=== PATIENT | male | born 1935 | race Caucasian/White ===

== ENCOUNTER 2020-02-10 02:54 | Inpatient (IN) | payer MEDICARE, SELFPAY ==
[2020-02-10] VITALS (18 sets, daily range): BP systolic 95–180; BP diastolic 54–89; PULSE 94–116; RESP 14–18; TEMP 36.2–36.9; O2SAT 97–100; BMI 26.1
--- NOTE | ~2020-02-10 | CT_ITS ---
EXAMINATION: CT abdomen pelvis wo con DATE: 02/10/2020 05:55 INDICATION: Hematuria. TECHNIQUE: Computed tomography (CT) of the abdomen and pelvis was performed without intravenous contr ast. Automated exposure control and iterative reconstruction technique were employed. The dose-length product was 705.01 mGy-cm. COMPARISON: CT abdomen and pelvis 06/03/2010 FINDINGS: The visualized portions of the lung bases demonstrate mild atelectasis. No pleural effusion . The heart size is normal. No pericardial effusion. There is diffuse hepatic steatosis. There is hans er surface nodularity, consistent with cirrhosis. There are gallstones in the gallbladder, which is n ormal in size. Calcifications in the spleen are consistent with old granulomatous disease. The pancre as, adrenal glands, and right kidney are normal. There is a 2.0 cm cyst in left kidney. The prostate is severely enlarged. There is a Jonas catheter in expected position. There is hyperdense material in the bladder, consistent with hematoma. There are stones in the bladder measuring up to 17 mm. There is diverticulosis of the colon without evidence of diverticulitis. The appendix is normal. There are no pathologically enlarged lymph nodes. There is a small left inguinal hernia containing fat. There i s no free intraperitoneal fluid. There is moderate lumbar spondylosis. IMPRESSION: 1. Hematoma in the bladder lumen. 2. Bladder stones. 3. Cirrhosis of the liver. 4. Cholelithiasis. Reviewed, dictated and finalized at location A.
[2020-02-10 04:02] LABS: Basophils Percent Auto 0.5 % (0.2-1.2); Eosinophils Absolute Auto 0.3 K/mm3 (0-0.3); Eosinophils Percent Auto 4.1 % (0-4.4); Hematocrit 48.2 % (42.0-52.0); Hemoglobin 16.1 g/dL (14.0-18.0); Immature Granulocyte Absolute 0.02 K/mm3 (0.00-0.031); Immature Granulocyte Percent A 0.3 % (0-0.5); Mean Corpuscular HGB Conc 33.4 g/dl (32-36); Mean Corpuscular Hemoglobin 30.7 pg (26-34); Mean Corpuscular Volume 91.8 fl (80-100); Mean Platelet Volume 10.8 fl (7.4-10.4); Monocytes Absolute Auto 0.5 K/mm3 (0.1-0.6); Monocytes Percent Auto 7.1 % (2.6-8.5); Neutrophils Absolute Auto 4.5 K/mm3 (1.3-6.7); Platelet Count Result 194 k/mm3 (150-375); Red Blood Count 5.25 M/mm3 (4.6-6.20); White Blood Count 7.5 K/mm3 (4.5-10.0)
[2020-02-10 04:14] LABS: Alanine Aminotransferase 31 U/L (4-50); Albumin Level 4.7 g/dL (3.5-5.1); Alkaline Phosphatase 49 U/L (38-126); Aspartate Amino Transferase 33 U/L (17-59); Bilirubin,Total 0.7 mg/dL (0.2-1.3); Blood Urea Nitrogen 18 mg/dL (9-20); Carbon Dioxide 24 mmol/L (22-30); Chloride 102 mmol/L (98-107); Estimated Glomerular Filt Rate > 60; Glucose 180 mg/dL (75-110); Potassium 4.3 mmol/L (3.4-5.0); Sodium 135 mmol/L (137-145)
[2020-02-10 04:17] LABS: INR 1.1; Prothrombin Time 13.5 Seconds (11.1-14.7)
[2020-02-10 04:18] LABS: Partial Thromboplastin Time 30.7 SECONDS (22.3-36.8)
--- NOTE | 2020-02-10 04:35 | PC.NURSE ---
10ml saline balloon deflated 18g laurent catheter removed. Then 3way catheter inserted with minimal discomfort per patient, no. CBobstruction noted-patient continues to bleed from meatus. CBI started with minimal output noted and patients c/o increasing discomfort--piston syringe irrigation/evacuation of blood clots started manually-patient states discomfort improving
--- NOTE | 2020-02-10 06:10 | ED.MALEGU ---
HPI - Male Genitourinary General Chief complaint: Urogenital-Male Stated complaint: bleeding from penis Time Seen by Provider: 02/10/20 03:46 Source: patient Mode of arrival: ambulatory Limitations: no limitations History of Present Illness HPI Narrative: This patient is an 85 yo male with h/o enlarge prostate s/p TURP 10 years ago who presents to ER for evaluation of gross hematuria. PAtient states he has had intermittent hematuria for a long time but yesterday afternoon he developed continuous bleeding from his penis. He reports initially he had gradually bright red blood and it was just trickling. Tonight his bleeding became heavier. HE is now feeling alot of pressue in his bladder and he is urinating very little. HE denies fever, chills, nausea, vomiting or back pain. He does not take any blood thinners. He denies any recent urethral or bladder trauma. Related Data Home Medications Medication Instructions Recorded Confirmed celecoxib 200 mg capsule 200 mg PO DAILY 10/03/19 lisinopril 5 mg tablet 5 mg PO DAILY 10/03/19 metformin 500 mg tablet 500 mg PO BID 10/03/19 psyllium husk 0.52 gram capsule 1.04 gm PO BID cap 10/03/19 sildenafil 50 mg tablet 50 mg PO DAILY PRN 10/03/19 simvastatin 20 mg tablet 20 mg PO DAILY 10/03/19 aminocaproic acid 500 mg tablet 1 gm PO TID PRN 01/14/20 Allergies Allergy/AdvReac Type Severity Reaction Status Date / Time selenium Allergy Unknown rash Verified 01/14/20 09:19 Contrast Media Allergy Unknown Unknown Uncoded 01/14/20 09:19 Review of Systems Review of Systems: All systems reviewed & are unremarkable except as noted in HPI and below Constitutional: Constitutional: Denies body ache(s) and Denies chills Gastrointestinal: Gastrointestinal: Reports abdominal pain, Denies melena, Denies bloating, Denies hematochezia and Denies nausea Genitourinary: Genitourinary: Reports oliguria and Denies flank pain [facility] Past Medical History Medical History (Updated 02/10/20 @ 07:41 by Mitch Martinez MD) BPH (benign prostatic hyperplasia) Degeneration of cervical intervertebral disc Diverticulosis Noted by Colonoscopy; polypectomy 2012, 2019 Glaucoma Hyperlipidemia 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 HEAD: Normocephalic, atraumatic EYES: PERRLA and EOMI, conjunctiva clear without discharge THROAT:Mucous membranes moist, Oropharynx normal without erythema, exudate, peritonsillar swelling or fluctuance NECK: Supple, without lymphadenopathy or mass RESPIRATORY: No respiratory distress, Airway patent, Respirations non-labored, Clear to auscultation without rales, rhonchi or wheeze HEART: Regular rate and rhythm. No murmur heard. Normal peripheral pulses. ABDOMEN: Soft, nontender, nondistended, normal active bowel sounds. No masses. No rebound or guarding, No organomegaly. EXTREMITIES: No edema, normal strength with full range of motion. SKIN: Warm, dry, normal color without rash NEURO: Alert and oriented x3. CN 2-12 grossly intact. No focal deficits. PSYCH: Normal mood and affect. : Penis: Yes circumcised Meatus: Blood at meatus present (bleeding from his meatus)
--- NOTE | 2020-02-10 06:31 | PC.NURSE ---
CBI clotted off-MD aware. Numerous attempts of piston syringe manual evacuation with minimal return. Calling for 24g [address] way catheter to replace the 22g [address] way
--- NOTE | 2020-02-10 06:40 | PC.NURSE ---
22g [address] removed after 30ml saline balloon deflated-pt tolerated well. 24g [address] reinserted with 30ml saline inflation of balloon. Piston syringe evacuation of numerous blood clots-pt reports relief from discomfort-CBI restarted.
--- NOTE | 2020-02-10 06:48 | ECG_ITS ---
Measurements Intervals [place] Rate: 112 P: 64 [place]: 145 QRS: 52 QRSD: 137 T: 31 QT: 349 QTc: 477 Interpretive Statements SINUS TACHYCARDIA RIGHT BUNDLE BRANCH BLOCK BASELINE WANDER- I, II, AVR, AVL, AVF ABNORMAL ECG Electronically Signed On 02-10-2020 8:49:14 CDT by Patrick Byrd D.O.
--- NOTE | 2020-02-10 06:48 | PM.IMHP ---
H&P: HPI History of Present Illness Chief complaint: Gross hematuria/urinary retention/bladder hemorrha Narrative: Harshal Castañeda is a 85 year old male with BPH status post TURP 10 years ago who presents emergency room with hematuria. Patient states after his TURP, he continued to have bleeding. He he was seen again at [place] about 7 years ago but continues to have intermittent bleeding usually after sitting on a hard surface. Two days ago patient was sitting on a hard folding chair for an extended period and that evening began to have gross hematuria. Normally this resolves on its own but this time his symptoms persisted. He had some slight dysuria. He had urinary frequency. He had difficulty emptying his bladder. He did have a UTI about 2 months ago treated with ciprofloxacin with good results. He denies any back pain. There has been no recent urethral instrumentation or trauma. He is not on blood thinners. Patient denies fever, chills, cough, shortness of breath, chest pain, palpitations, nausea, vomiting, diarrhea or abdominal pain. No headache or sore throat symptoms. Because of the persistent hematuria he presented to the emergency room for evaluation. In the emergency room, patient was hemodynamically stable. Hemoglobin was 16. Renal function was normal. LFTs normal. PT and PTT normal. CT of the abdomen pelvis showed hematoma in the bladder lumen with bladder stones. Incidental finding of cirrhosis of the liver noted. Patient denies history of excessive alcohol use. No recent imaging to compare. A Jonas catheter was placed with gross hematuria noted. Patient was seen by myself and Urology in the emergency room.. Review of Systems Review of Systems: Narrative: Gen - No fever or chills Eye -no pruritus of the eyes. No vision changes. ENT -he does have chronic hearing loss and wears a hearing aid. He also complains rhinorrhea from allergies. No sore throat or headache. No otalgia. CV - no chest pain or palpitation. He has difficulty with cardiovascular activity because of knee pain. He does do stretching exercises with his . Last stress test was 5+ years ago which was neormal. No chest pain with exertion. Pulm - no shortness of breath or cough GI - no nausea, vomiting or diarrhea. No abdominal pain -as above Neuro -no neurologic symptoms. No headaches. Endo - no weight loss. Patient is on oral medications for diabetes. He has an A1c checked every 6 months since been well controlled. He does not check his glucose at home. 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 No tobacco use. No drug use. Full code. Nominates his to be the individual would make medical decisions for him if he is unable. He drinks 1-2 alcoholic drinks per week. Smoking packs per day: 0.5 Smoking cigarettes per day: 10.0 Years smoked: 5 Smoking pack-years: 2.50 Smoking status: Former smoker Tobacco type: c
--- NOTE | 2020-02-10 07:17 | WPDURCON ---
Assessment and Plan Assessment and plan (1) Hematuria, gross: Code(s): R31.0 - Gross hematuria Status: Acute Assessment and Plan: Hematuria with clot retention - upper tracts normal on CT-abd/pelvis wo contrast. Most likely cause would be BPH. Will plan cysto/clot evacuation with bilat. RPG. Urology Consult Note HPI Date Seen: 02/10/20 Primary Care Provider: Lynnette Puentes MD Consult Narrative Narrative: Harshal Castañeda is a 85 year old male known to Dr. Romano with longstanding BPH s/p TURP 10 years ago. Presents to ER with worsening painless gross hematuria with eventual clots. Denies fever/chills, n/v. 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 Type 2 diabetes mellitus without complications Surgical History Surgical History H/O arthroscopy of knee H/O hernia repair H/O transurethral resection of prostate History of fusion of cervical spine C5-7 08/14/12 History of hip replacement Family History Family History Father Cerebrovascular accident Sibling Carcinoma of colon Mother Family history of malignant neoplasm of breast in first degree relative Social History Social History Smoking status: Former smoker Alcohol intake: current Meds Home Medications and Allergies Home Medications Medication Instructions Recorded Confirmed Type celecoxib 200 mg capsule 200 mg PO DAILY 10/03/19 History lisinopril 5 mg tablet 5 mg PO DAILY 10/03/19 History metformin 500 mg tablet 500 mg PO BID 10/03/19 History psyllium husk 0.52 gram capsule 1.04 gm PO BID cap 10/03/19 History sildenafil 50 mg tablet 50 mg PO DAILY PRN 10/03/19 History simvastatin 20 mg tablet 20 mg PO DAILY 10/03/19 History glimepiride 2 mg tablet 2 mg PO QAM #90 tablet 12/19/19 Rx aminocaproic acid 500 mg tablet 1 gm PO TID PRN 01/14/20 History Allergies Allergy/AdvReac Type Severity Reaction Status Date / Time selenium Allergy Unknown rash Verified 01/14/20 09:19 Contrast Media Allergy Unknown Unknown Uncoded 01/14/20 09:19 Vital Signs Vital Signs - 24 hr 02/10/20 02:59 02/10/20 04:20 02/10/20 05:45 Temperature 97.9 F Pulse Rate 116 H 100 Respiratory Rate 18 18 18 Blood Pressure 152/89 H 180/89 H 115/82 Pulse Oximetry 98 98 97 02/10/20 06:33 Temperature Pulse Rate 94 Respiratory Rate 18 Blood Pressure 128/84 Pulse Oximetry 98 Exam Const: General: no acute distress Resp: Effort & Inspection: normal respiratory effort GI: Inspection: non-distended GI Palp: No abdominal tenderness and No Guarding due to palpation present (GI) Auscultation: normal bowel sounds Urinary Catheter: Urinary Catheter: urine red and urine with clots Results Labs CBC & Chem 7: 02/10/20 03:57 02/10/20 03:57 Labs: Short CBC 02/10/20 Range/Units 03:57 WBC 7.5 (4.5-10.0) K/mm3 Hgb 16.1 (14.0-18.0) g/dL Hct 48.2 (42.0-52.0) % Plt Count 194 (150-375) k/mm3 BMP 02/10/20 03:57 Sodium 135 L Potassium 4.3 Chloride 102 Carbon Dioxide 24 BUN 18 Creatinine 0.60 L Glucose 180 H Calcium 10.0 Liver Function 02/10/20 Range/Units
[2020-02-10] MEDS: LACTATED RINGERS 1,000 ML 125 ML IV CONT (07:43)
--- NOTE | 2020-02-10 08:00 | PC.NURSE ---
This patient, Harshal Castañeda, was admitted to [facility] Surg Room 306-02. Patient/family oriented to hospital policies and general routines including ID bracelet, bed and alarms, visiting hours, pain management, procedures, bathroom and other care routines, personal items, smoking policy, room service/diet, and visiting hours. Valuables list has been completed. Information on how to activate the Rapid Response Team has been discussed. Patient/Family are encouraged to report perceived risks to care and to ask questions if they do not understand what they are told or what they should do.
[2020-02-10 08:21] LABS: Hematocrit 41.8 % (42.0-52.0)
--- NOTE | 2020-02-10 10:20 | PC.NURSE ---
To OR via Bed.
[2020-02-10] MEDS: LACTATED RINGERS 1,000 ML 30 ML IV CONT ×2 (10:50→13:36)
[2020-02-10 10:58] LABS: Glucose Point of Care 178 (65-105)
--- NOTE | 2020-02-10 11:35 | WPDANESEPPF ---
Anes - Initial Pre Proc Eval Procedure: Operation Date: 02/10/20 12:00 Proposed Procedures p Cystoscopy, Clot Evacuation, Bilateral Retrograde Pyelograms - Carter Hernandez MD Date/Time: 02/10/20 11:35 Surgeon: Avel Leonard MD Pre Op Diagnosis: Gross hematuria/urinary retention/bladder hemorrha Patient Data Age: 85 Gender: M Height: 6 ft Weight: 87.3 kg Last Vital Signs Temp 36.4 C 02/10/20 10:58 Pulse 107 H 02/10/20 10:58 Resp 18 02/10/20 10:58 BP 120/64 02/10/20 10:58 Pulse Ox 98 02/10/20 10:58 Allergies Allergy/AdvReac Type Severity Reaction Status Date / Time selenium Allergy Unknown rash Verified 01/14/20 09:19 Contrast Media Allergy Unknown Unknown Uncoded 01/14/20 09:19 Home Medications Medication Instructions Recorded Confirmed Type celecoxib 200 mg capsule 200 mg PO DAILY 10/03/19 02/10/20 History lisinopril 5 mg tablet 5 mg PO DAILY 10/03/19 02/10/20 History metformin 500 mg tablet 500 mg PO BID 10/03/19 02/10/20 History psyllium husk 0.52 gram capsule 1.04 gm PO BID cap 10/03/19 02/10/20 History sildenafil 50 mg tablet 50 mg PO DAILY PRN 10/03/19 History simvastatin 20 mg tablet 20 mg PO DAILY 10/03/19 02/10/20 History glimepiride 2 mg tablet 2 mg PO QAM #90 tablet 12/19/19 02/10/20 Rx aminocaproic acid 500 mg tablet 1 gm PO TID PRN 01/14/20 02/10/20 History bimatoprost [Lumigan] 1 drp OPHTHALMIC (EYE) HS 02/10/20 02/10/20 History brinzolamide [Azopt] 1 drp OPHTHALMIC (EYE) BID 02/10/20 02/10/20 History [id number] K-lycop 1 tablet DAILY 02/10/20 02/10/20 History [Men's 50 Plus Multivitamin] Laboratory Tests 02/10/20 02/10/20 02/10/20 03:57 03:57 03:57 WBC 7.5 K/mm3 K/mm3 (4.5-10.0) RBC 5.25 M/mm3 M/mm3 (4.6-6.20) Hgb 16.1 g/dL g/dL (14.0-18.0) Hct 48.2 % % (42.0-52.0) MCV 91.8 fl fl (80-100) MCH 30.7 pg pg (26-34) MCHC 33.4 g/dl g/dl (32-36) RDW 13.0 % % (11.5-14.5) Plt Count 194 k/mm3 k/mm3 (150-375) MPV 10.8 fl H fl (7.4-10.4) Immature Gran % (Auto) 0.3 % % (0-0.5) Neut % (Auto) 60.0 % % (45.5-73.1) Lymph % (Auto) 28.0 % % (18.3-44.2) [place] % (Auto) 7.1 % % (2.6-8.5) Eos % (Auto) 4.1 % % (0-4.4) Baso % (Auto) 0.5 % % (0.2-1.2) Lymph # (Auto) 2.10 K/mm3 K/mm3 (0.9-3.2) [place] # (Auto) 0.5 K/mm3 K/mm3 (0.1-0.6) Eos # (Auto) 0.3 K/mm3 K/mm3 (0-0.3) Baso # (Auto) 0.0 K/mm3 K/mm3 (0.0-0.1) Abs Immat Gran (auto) 0.02 K/mm3 K/mm3 (0.00-0.031) Absolute Neuts (auto) 4.5 K/mm3 K/mm3 (1.3-6.7) Absolute Nucleated RBC 0.0 K/mm3 K/mm3 (0.0-0.012) Nucleated RBC % 0.0 % % (0.0-0.2) PT 13.5 Seconds Seconds (11.1-14.7) INR 1.1 APTT 30.7 SECONDS SECONDS (22.3-36.8) Sodium 135 mmol/L L mmol/L (137-145) Potassium 4.3 mmol/L mmol/L (3.4-5.0) Chloride 102 mmol/L mmol/L (98-107) Carbon Dioxide 24 mmol/L mmol/L (22-30) BUN 18 mg/dL mg/dL (9-20) Creatinine 0.60 mg/dL L mg/dL (0.7-1.3) Estim Creat Clear Calc Not Reportable Estimated GFR > 60 (59 - ) Glucose 180 mg/dL H mg/dL (75-110) POC Capillary Glucose Calcium 10.0 mg/dL mg/dL (8.4-10.2) Total Bilirubin 0.7 mg/dL mg/dL (0.2-1.3) AST 33 U/L U/L (17-59) ALT 31 U/L U/L (4-50) Alkaline Phosphatase 49 U/L U/L (38-126) Total Protein 8.0 g/dL g/dL (6.3-8.2) Albumin 4.7 g/dL g/dL (3.5-5.1) Blood Type Antibody Screen 02/10/20 02/10/20 02/10/20 07:13 08:08 10:56 WBC RBC Hgb 14.0 g/dL g/dL (14.0-18.0) Hct 41.8 % L % (42.0-52.0) MCV
[2020-02-10] MEDS: ceFAZolin 2 GM/D5W 50 ML 2 GM/50 ML BAG IVPB (12:14)
--- NOTE | 2020-02-10 14:04 | P.OP_ITS ---
Procedure Note - Detailed Date of procedure: 02/10/20 Pre-op diagnosis: Gross hematuria/urinary retention/bladder hemorrha Post-op diagnosis: same Procedure performed: Cystoscopy, clot evacuation. Attempted bilateral retrograde pyelogram. Description of procedure: Patient is brought to the operative suite where he has prepped and draped in routine sterile fashion while in a dorsal lithotomy position. Cystoscopy is undertaken with a 21 F rigid cystoscope. He has no urethral stricture but massive prostatic hyperplasia including both lateral lobe and a large median lobe. He then has at least 3, and perhaps for 4, moderate- sized bladder stones each measuring 2-3 cm. I evacuated a very large clot using a Hubert syringe. The discoloration of his urine, markedly enlarged median lobe of the prostate and bladder stones precluded identification of the ureteral orifices for retrograde pyelography. I could find no significant bleeding from the prostate itself and saw no additional intravesical pathology other than the bladder stones. Because of the possibility of a UTI and ongoing urine discoloration I opted not to proceed with laser lithotripsy of bladder stones. I did place a 24 F hematuria catheter to continuous irrigation. Efflux was clear at the termination of the procedure. Anesthesia: GLMA Surgeon: Carter Hernandez MD Estimated blood loss (mL): 0 Drains: No Packing: No Pathology: none sent Complications: No immediate complications Condition: stable Disposition: PACU
--- NOTE | 2020-02-10 14:15 | PC.NURSE ---
Back from OR via bed.
[2020-02-10 14:45] LABS: Glucose Point of Care 183 (65-105)
[2020-02-10 15:49] LABS: Hematocrit 37.1 % (42.0-52.0); Hemoglobin 12.3 g/dL (14.0-18.0)
[2020-02-10 18:04] LABS: Glucose Point of Care 193 (65-105)
[2020-02-10] MEDS: BRINZOLAMIDE 1% OPHTH SUSP 10 ML 1 DROP EACH EYE (20:16)
[2020-02-10] MEDS: LATANOPROST 0.005% OP SOLN 2.5 ML BTL 1 DROP EACH EYE (20:16)
[2020-02-10 20:41] LABS: Glucose Point of Care 321 (65-105)
[2020-02-10] MEDS: DOCUSATE SODIUM 100 MG CAPSULE PO (20:48)
[2020-02-10 21:28] LABS: Hematocrit 36.8 % (42.0-52.0); Hemoglobin 11.8 g/dL (14.0-18.0)
[2020-02-10 23:59] LABS: Glucose Point of Care 229 (65-105)
[2020-02-11] VITALS (7 sets, daily range): BP systolic 87–113; BP diastolic 46–87; PULSE 103–117; RESP 16–18; TEMP 36.6–36.9; O2SAT 92–100
[2020-02-11 01:23] LABS: Hematocrit 34.5 % (42.0-52.0); Hemoglobin 11.5 g/dL (14.0-18.0)
[2020-02-11 06:05] LABS: Hematocrit 33.4 % (42.0-52.0); Hemoglobin 10.9 g/dL (14.0-18.0); Mean Corpuscular HGB Conc 32.6 g/dl (32-36); Mean Corpuscular Hemoglobin 30.4 pg (26-34); Mean Corpuscular Volume 93.3 fl (80-100); Mean Platelet Volume 11.7 fl (7.4-10.4); Platelet Count Result 184 k/mm3 (150-375); Red Blood Count 3.58 M/mm3 (4.6-6.20); Red Cell Distribution Width 13.1 % (11.5-14.5); White Blood Count 11.5 K/mm3 (4.5-10.0)
[2020-02-11 06:15] LABS: Blood Urea Nitrogen 16 mg/dL (9-20); Calcium 8.6 mg/dL (8.4-10.2); Carbon Dioxide 29 mmol/L (22-30); Chloride 104 mmol/L (98-107); Cholesterol 86 mg/dL (0-200); Estimated CRCL calculation 76 ml/min; Estimated Glomerular Filt Rate > 60; Glucose 162 mg/dL (75-110); HDL Direct 33 mg/dL; Potassium 4.3 mmol/L (3.4-5.0); Sodium 137 mmol/L (137-145); Triglycerides 101 mg/dL (<150)
[2020-02-11 06:26] LABS: LDL Cholesterol Direct 38 mg/dL
[2020-02-11 06:28] LABS: Hemoglobin A1C 6.8 % (<5.7)
[2020-02-11 06:43] LABS: Iron 51 ug/dL (49-181)
[2020-02-11 06:52] LABS: Percent Iron Saturation 18 % (20-50)
[2020-02-11 07:17] LABS: Thyroid Stimulating Hormone Reflex 0.491 uIU/mL (0.465-4.68)
[2020-02-11 07:25] LABS: Folic Acid > 20.0 ng/mL (2.76->20)
[2020-02-11 08:22] LABS: Hepatitis B Surface Antigen Negative (Negative)
[2020-02-11 08:39] LABS: Hepatitis B Surface Anti Res Negative; Hepatitis C Virus Antibody Negative (Negative)
[2020-02-11 09:20] LABS: Glucose Point of Care 166 (65-105)
[2020-02-11] MEDS: FINASTERIDE 5 MG TABLET PO (09:47)
[2020-02-11] MEDS: SIMVASTATIN 20 MG TABLET PO (09:47)
[2020-02-11] MEDS: metFORMIN HCL 500 MG TABLET PO ×2 (09:47→17:57)
[2020-02-11] MEDS: CELECOXIB 200 MG CAPSULE PO (09:47)
[2020-02-11] MEDS: THERAPEUTIC MULTIVITAMINS/MINERALS TAB (*BKC) 1 TABLET BY MOUTH (09:47)
[2020-02-11] MEDS: DOCUSATE SODIUM 100 MG CAPSULE PO ×3 (09:47→21:15)
[2020-02-11] MEDS: lisinopriL 5 MG TABLET PO (09:47)
[2020-02-11] MEDS: GLIMEPIRIDE 2 MG TABLET PO (09:47)
[2020-02-11] MEDS: LATANOPROST 0.005% OP SOLN 2.5 ML BTL 1 DROP EACH EYE (09:48)
[2020-02-11] MEDS: ACETAMINOPHEN 325 MG TABLET 650 MG PO ×2 (12:03→17:59)
[2020-02-11] MEDS: BRINZOLAMIDE 1% OPHTH SUSP 10 ML 1 DROP EACH EYE ×2 (12:06→21:12)
[2020-02-11 12:20] LABS: Glucose Point of Care 265 (65-105)
--- NOTE | 2020-02-11 14:20 | WPDUROPN2 ---
Progress Note: A&P Assessment and Plan (1) Hematuria, gross: Code(s): R31.0 - Gross hematuria Status: Acute Assessment and Plan: - urine clear, will turn off CBI and reassess in am Subjective Subjective Date/Time Seen: 02/11/20 14:20 Review of Systems Review of Systems: All systems reviewed & are unremarkable except as noted in HPI and below Exam Const: General: no acute distress Eyes: General: appearance normal, both eyes and all related structures Urinary Catheter: Urinary Catheter: urine clear (slow CBI) Objective Data Vital Signs Vital Signs: Vital Signs - 24 hr 02/10/20 14:43 02/10/20 15:16 02/10/20 16:00 Temperature 36.2 C L Pulse Rate 98 99 104 H Respiratory Rate 16 16 16 Blood Pressure 107/62 100/61 112/54 L Pulse Oximetry 100 100 100 02/10/20 22:00 02/11/20 02:00 02/11/20 06:00 Temperature 36.9 C 36.9 C 36.6 C Pulse Rate 101 H 106 H 106 H Respiratory Rate 16 16 16 Blood Pressure 111/61 104/68 106/62 Pulse Oximetry 98 95 96 02/11/20 10:00 Temperature 36.9 C Pulse Rate 117 H Respiratory Rate 18 Blood Pressure 113/53 L Pulse Oximetry 100 Intake/Output Intake/Output: Intake & Output 02/08/20 02/09/20 02/10/20 02/11/20 23:59 23:59 23:59 23:59 Intake Total 6690 790 Output Total 83299 1400 Balance -0094 -943 Meds/Results Medications: Active Medications Generic Name Dose Route Start Last Admin Trade Name Freq PRN Reason Stop Dose Admin Acetaminophen 650 mg 02/11/20 10:35 02/11/20 12:03 Tylenol Tablet PO 650 mg Q6H PRN Administration Mild Pain (1-3) or Fever Aminocaproic Acid 1,000 mg 02/10/20 18:31 Amicar Tab PO TID PRN Bleeding Brinzolamide 1 drop 02/10/20 21:00 02/11/20 12:06 Azopt Ophth Jailyn EACH EYE 1 drop Q12HR JIMI Administration Celecoxib 200 mg 02/11/20 09:00 02/11/20 09:47 Celebrex PO 200 mg DAILY JIMI Administration Dextrose 12.5 gm 02/10/20 07:51 Dextrose 50% Syringe IV PUSH PRN PRN Hypoglycemia Protocol Docusate Sodium 100 mg 02/10/20 21:00 02/11/20 09:47 Colace Capsule PO 100 mg Q12HR JIMI Administration Fentanyl Citrate 25 mcg 02/10/20 11:36 02/10/20 13:42 Sublimaze IV PUSH 25 mcg Q2M PRN Administration Pain Finasteride 5 mg 02/11/20 09:00 02/11/20 09:47 Proscar PO 5 mg QAM JIMI Administration Glimepiride 2 mg 02/11/20 08:00 02/11/20 09:47 Amaryl PO 2 mg DAILY@0800 JIMI Administration Glucagon 1 mg 02/10/20 07:51 Glucagon For Inj IM PRN PRN Hypoglycemia Protocol Glucose 15 gm 02/10/20 07:51 Glutose 15 PO PRN PRN Hypoglycemia Protocol Hyoscyamine 0.125 mg 02/10/20 06:48 Levsin Solution PO Q4HR PRN bladder spasm Dextrose 1,000 mls @ 100 mls/hr 02/10/20 07:51 Dextrose 5% 1,000 Ml IVPB PRN PRN Hypoglycemia Protocol Insulin Aspart 3 - 6 units 02/10/20 08:00 02/11/20 12:37 Novolog SUB-Q Not Given TIDWM [facility] Protocol Latanoprost 1 drop 02/10/20 21:00 02/11/20 09:48 Xalatan EACH EYE 03/11/20 21:01 1 drop HS JIMI Administration Lisinopril 5 mg 02/11/20 09:00 02/11/20 09:47 Prinivil PO 5 mg DAILY JIMI Administration Metformin HCl 500 mg 02/11/20 08:00 02/11/20 09:47 Glucophage PO 500 mg BIDWM JIMI Administration Morphine Sulfate 4 mg 02/10/20 06:49 Morphine Sulfate Inj IV PUSH Q2H PRN Pain Rated 7-10 Multivitamins/Calcium 1 tablet 02/11/20 09:00 02/11/20 09:47 Therapeutic Multivitamins/Minerals BY MOUTH 1 tablet DAILY JIMI Administration Ondansetron HCl 4 mg 02/10/20 06:49 Zofran Inj IV PUSH Q4H PRN Nausea Ondansetron HCl 4 mg 02/10/20 11:36 Zofran Inj IV PUSH ONCE PRN Nausea Simvastatin 20 mg 02/11/20 09:00 02/11/20 09:47 Zocor PO 20 mg DAILY JIMI Administration Radiology Results: ITS Impression
--- NOTE | 2020-02-11 17:06 | PM.IMPN ---
Progress Note: A&P Assessment and Plan (1) Hematuria, gross: Code(s): R31.0 - Gross hematuria Status: Acute Assessment and Plan: Patient with gross hematuria most likely related to BPH and sitting on a hard seat. [place] to be bleeding from the prostate but Cystoscopy could not find any significant bleeding from the prostate itself. Urine has cleared sufficiently enough that this CBI has been turned off. Will monitor overnight. If he continues to maintain relatively clear urine, plan for discharge. (2) Cirrhosis: Qualifiers: Ascites presence: without ascites Hepatic cirrhosis type: unspecified hepatic cirrhosis Qualified Code(s): K74.60 - Unspecified cirrhosis of liver Code(s): K74.60 - Unspecified cirrhosis of liver Status: Acute Assessment and Plan: CT scan shows diffuse hepatic steatosis and some liver surface nodularity consistent with cirrhosis. LFTs and coagulopathy panel normal. Most likely this is related to nonalcoholic fatty liver disease. Workup including hepatitis panel and lipid panel unrevealing. Discussed with patient. (3) Type 2 diabetes mellitus without complications: Qualifiers: Diabetes mellitus adjunct faculty for medical terminology insulin use: without adjunct faculty for medical terminology use Qualified Code(s): E11.9 - Type 2 diabetes mellitus without complications Code(s): E11.9 - Type 2 diabetes mellitus without complications Status: Acute Assessment and Plan: A1c 6.8. Glucose reviewed on 02/11/20. Glucose elevated at times into the 200's. Continue Amaryl and metformin at this time. Cntinue sliding scale protocol. (4) BPH NOS w/o ur obs/LUTS: Code(s): N40.0 - Benign prostatic hyperplasia without lower urinary tract symptoms Status: Acute Assessment and Plan: Patient is status post TURP 10 years ago. He was not on medications for BPH on admission. Finasteride started. Appreciate urology input. (5) Acute blood loss anemia: Code(s): D62 - Acute posthemorrhagic anemia Status: Acute Assessment and Plan: Hemoglobin 16.1 on admission but has trended down to 10.9 today. Related to the acute blood loss from his hematuria. Continue to monitor To ensure stability. Subjective Date/time seen: 02/11/20 17:06 Interval history: 85yo male here for gross hematuria felt related to BPH. No problems overnight. No n/v. Eating well. No chest pain or shortness of breath. Patient is up walking to the bathroom. Exam Narrative: Exam Narrative: Gen -NARD Chest -lungs are clear to auscultation bilaterally. Normal Respiratory rate. CV - Regular rate and rhythm. S1-S2. Abd - Soft. Nontender. Nondistended. Positive bowel sounds -Jonas catheter secured with dark reddish brown urine in the catheter Ext - No pedal edema. Neuro - Alert and oriented. Nonfocal exam. Psych - Nml mood and affect Skin - Warm and dry Objective Data Vital Signs Vital Signs: Vital Signs - 24 hr 02/10/20 22:00 02/11/20 02:00 02/11/20 06:00 Temperature 98.4 F 98.4 F 97.8 F Pulse Rate 101 H 106 H 106 H Respiratory Rate 16 16 16 Blood Pressure 111/61 104/68 106/62 Pulse Oximetry 98 95 96 02/11/20 10:00 02/11/20 14:00 Temperature 98.5 F 98.1 F Pulse Rate 117 H 113 H Respiratory Rate 18 18 Blood Pressure 113/53 L 109/87 Pulse Oximetry 100 92 Intake/Output Intake/Output: Intake & Output 02/08/20 02/09/20 02/10/20 02/11/20 23:59 23:59 23:59 23:59 Intake Total 6690 1030 Output Total 60262 1400 Balance -7751 -370 Meds/Results Medications: Active Medications Generic Name Dose Route Start Last Admin Trade Name Freq PRN Reason Stop Dose Admin Acetaminophen 650 mg 02/11/20 10:35 02/11/20 12:03 Tylenol Tablet PO 650 mg Q6H PRN Administration Mild Pain (1-3) or Fever Aminocaproic Acid 1,000 mg 02/10/20 18:31 Amicar Tab PO TID PRN Bleeding Brinzolamide 1 drop 02/10/20 21:00 02/10
[2020-02-11 20:17] LABS: Glucose Point of Care 206 (65-105)
[2020-02-11] MEDS: SODIUM CHLORIDE 0.9% IV 500 ML 999 ML (21:17)
[2020-02-12 02:00] VITALS: BP 119/54; PULSE 103; RESP 18; TEMP 37.3; O2SAT 100
[2020-02-12] MEDS: ACETAMINOPHEN 325 MG TABLET 650 MG PO ×2 (03:38→08:08)
[2020-02-12 04:08] LABS: Glucose Point of Care 219 (65-105)
[2020-02-12 06:00] VITALS: BP 102/51; PULSE 96; RESP 18; TEMP 36.5; O2SAT 97
[2020-02-12 07:12] LABS: Hemoglobin 9.1 g/dL (14.0-18.0); Mean Corpuscular HGB Conc 32.5 g/dl (32-36); Mean Corpuscular Hemoglobin 30.3 pg (26-34); Mean Corpuscular Volume 93.3 fl (80-100); Mean Platelet Volume 11.4 fl (7.4-10.4); Platelet Count Result 166 k/mm3 (150-375); Red Cell Distribution Width 13.2 % (11.5-14.5); White Blood Count 10.2 K/mm3 (4.5-10.0)
[2020-02-12 07:25] LABS: Blood Urea Nitrogen 18 mg/dL (9-20); Calcium 8.5 mg/dL (8.4-10.2); Carbon Dioxide 29 mmol/L (22-30); Chloride 101 mmol/L (98-107); Estimated CRCL calculation 87 ml/min; Estimated Glomerular Filt Rate > 60; Glucose 133 mg/dL (75-110); Potassium 3.7 mmol/L (3.4-5.0); Sodium 134 mmol/L (137-145)
--- NOTE | 2020-02-12 07:35 | WPDUROPN2 ---
Progress Note: A&P Assessment and Plan (1) Hematuria, gross: Code(s): R31.0 - Gross hematuria Status: Acute Assessment and Plan: Urine remains clear off CBI [id number]. Jonas out this morning for voiding trial. Home after lunch if voiding OK. Discharge on Finasteride. F/U with Dr. Mello 3-4 weeks. Subjective Subjective Date/Time Seen: 02/12/20 07:35 Hematuria due to BPH and bladder stones. Comfortable, no complaints. Review of Systems Cardiovascular: Cardiovascular: Denies chest pain, Denies lightheadedness, Denies palpitations and Denies dyspnea Respiratory: Respiratory: Denies dyspnea Gastrointestinal: Gastrointestinal: Denies diarrhea, Denies nausea and Denies vomiting Genitourinary: Genitourinary: Denies hematuria and Denies dysuria Endocrine: Endocrine: Denies palpitations Exam Const: General: no acute distress Resp: Effort & Inspection: normal respiratory effort GI: Inspection: non-distended GI Palp: No abdominal tenderness and No Guarding due to palpation present (GI) Auscultation: normal bowel sounds Objective Data Vital Signs Vital Signs: Vital Signs - 24 hr 02/11/20 10:00 02/11/20 14:00 02/11/20 18:00 Temperature 98.5 F 98.1 F 98.2 F Pulse Rate 117 H 113 H 103 H Respiratory Rate 18 18 18 Blood Pressure 113/53 L 109/87 88/46 L Pulse Oximetry 100 92 98 02/11/20 22:00 02/11/20 23:00 02/12/20 02:00 Temperature 98.3 F 99.1 F Pulse Rate 103 H 103 H Respiratory Rate 18 18 Blood Pressure 87/46 L 101/46 L 119/54 L Pulse Oximetry 99 100 02/12/20 06:00 Temperature 97.7 F Pulse Rate 96 Respiratory Rate 18 Blood Pressure 102/51 L Pulse Oximetry 97 Intake/Output Intake/Output: Intake & Output 02/09/20 02/10/20 02/11/20 02/12/20 23:59 23:59 23:59 23:59 Intake Total 6690 1890 400 Output Total 50466 1800 1600 Balance -6110 90 -1200 Meds/Results Medications: Active Medications Generic Name Dose Route Start Last Admin Trade Name Freq PRN Reason Stop Dose Admin Acetaminophen 650 mg 02/11/20 10:35 02/12/20 03:38 Tylenol Tablet PO 650 mg Q6H PRN Administration Mild Pain (1-3) or Fever Aminocaproic Acid 1,000 mg 02/10/20 18:31 Amicar Tab PO TID PRN Bleeding Bisacodyl 10 mg 02/12/20 07:34 Dulcolax Tab PO 02/12/20 07:35 ONCE ONE Brinzolamide 1 drop 02/10/20 21:00 02/11/20 21:12 Azopt Ophth Jailyn EACH EYE 1 drop Q12HR JIMI Administration Celecoxib 200 mg 02/11/20 09:00 02/11/20 09:47 Celebrex PO 200 mg DAILY JIMI Administration Dextrose 12.5 gm 02/10/20 07:51 Dextrose 50% Syringe IV PUSH PRN PRN Hypoglycemia Protocol Docusate Sodium 100 mg 02/10/20 21:00 02/11/20 21:14 Colace Capsule PO 100 mg Q12HR JIMI Administration Docusate Sodium 100 mg 02/11/20 17:15 02/11/20 21:15 Colace Capsule PO 100 mg Q12H PRN Administration Constipation Fentanyl Citrate 25 mcg 02/10/20 11:36 02/10/20 13:42 Sublimaze IV PUSH 25 mcg Q2M PRN Administration Pain Finasteride 5 mg 02/11/20 09:00 02/11/20 09:47 Proscar PO 5 mg QAM JIMI Administration Glimepiride 2 mg 02/11/20 08:00 02/11/20 09:47 Amaryl PO 2 mg DAILY@0800 JIMI Administration Glucagon 1 mg 02/10/20 07:51 Glucagon For Inj IM PRN PRN Hypoglycemia Protocol Glucose 15 gm 02/10/20 07:51 Glutose 15 PO PRN PRN Hypoglycemia Protocol Hyoscyamine 0.125 mg 02/10/20 06:48 Levsin Solution PO Q4HR PRN bladder spasm Dextrose 1,000 mls @ 100 mls/hr 02/10/20 07:51 Dextrose 5% 1,000 Ml IVPB PRN PRN Hypoglycemia Protocol Insulin Aspart 3 - 6 units 02/10/20 08:00 02/11/20 17:23 Novolog SUB-Q Not Given TIDWM JIMI Protocol Latanoprost 1 drop 02/10/20 21:00 02/11/20 09:48 Xalatan EACH EYE 03/11/20 21:01 1 drop HS JIMI Administration Lisinopril 5 mg
[2020-02-12] MEDS: BRINZOLAMIDE 1% OPHTH SUSP 10 ML 1 DROP EACH EYE (08:04)
[2020-02-12] MEDS: THERAPEUTIC MULTIVITAMINS/MINERALS TAB (*BKC) 1 TABLET BY MOUTH (08:09)
[2020-02-12] MEDS: metFORMIN HCL 500 MG TABLET PO (08:09)
[2020-02-12] MEDS: FINASTERIDE 5 MG TABLET PO (08:09)
[2020-02-12] MEDS: DOCUSATE SODIUM 100 MG CAPSULE PO (08:09)
[2020-02-12] MEDS: GLIMEPIRIDE 2 MG TABLET PO (08:09)
[2020-02-12] MEDS: CELECOXIB 200 MG CAPSULE PO (08:09)
--- NOTE | 2020-02-12 11:55 | PM.DS ---
DS: Diagnosis Admitting Diagnosis Admitting Diagnosis: Gross hematuria Discharge Diagnosis (1) Hematuria, gross: Code(s): R31.0 - Gross hematuria Status: Acute Assessment and Plan: Patient with gross hematuria most likely related to BPH and sitting on a hard seat. [place] to be bleeding from the prostate but Cystoscopy on 02/10/20 could not find any significant bleeding from the prostate itself. CBI started but urine has cleared sufficiently enough that the CBI turned off. Urine has remained clear. (2) Cirrhosis: Qualifiers: Ascites presence: without ascites Hepatic cirrhosis type: unspecified hepatic cirrhosis Qualified Code(s): K74.60 - Unspecified cirrhosis of liver Code(s): K74.60 - Unspecified cirrhosis of liver Status: Acute Assessment and Plan: CT scan shows diffuse hepatic steatosis and some liver surface nodularity consistent with cirrhosis. LFTs and coagulopathy panel normal. Most likely this is related to nonalcoholic fatty liver disease. Workup including hepatitis panel and lipid panel unrevealing. Discussed with patient. (3) Type 2 diabetes mellitus without complications: Qualifiers: Diabetes mellitus termite control representative insulin use: without termite control representative use Qualified Code(s): E11.9 - Type 2 diabetes mellitus without complications Code(s): E11.9 - Type 2 diabetes mellitus without complications Status: Acute Assessment and Plan: A1c 6.8. Glucose monitored closely. Glucose elevated at times into the 200's. We continued Amaryl and metformin. He was covered with sliding scale protocol. (4) BPH NOS w/o ur obs/LUTS: Code(s): N40.0 - Benign prostatic hyperplasia without lower urinary tract symptoms Status: Acute Assessment and Plan: Patient is status post TURP 10 years ago. He was not on medications for BPH on admission. Finasteride started. Appreciate urology input. (5) Acute blood loss anemia: Code(s): D62 - Acute posthemorrhagic anemia Status: Acute Assessment and Plan: Hemoglobin 16.1 on admission but has trended down to 9.1 at discharge. Related to the acute blood loss from his hematuria. Repeat CBC as outpatient. DS: Summary Hospital Course Reason for hospitalization: 85yo male here for hematuria. Please see H&P for details. Hospital Course: As above. Time Spent with Patient Time attestation: Total time spent providing and/or coordinating discharge services: 34 minutes. Time spent: Greater than 30 minutes Exam Narrative: Exam Narrative: Gen -NARD Chest -lungs are clear to auscultation bilaterally. Normal Respiratory rate. CV - Regular rate and rhythm. S1-S2. Abd - Soft. Nontender. Nondistended. Positive bowel sounds -Jonas catheter secured with clear yellow urine in tubing Ext - No pedal edema. Psych - Nml mood and affect Skin - Warm and dry DS: Data Data Completed and Pending Labs on day of discharge: Labs from last 24 hours 02/12/20 02/12/20 02/11/20 06:28 06:28 21:19 WBC 10.2 H RBC 3.00 L Hgb 9.1 L Hct 28.0 L MCV 93.3 MCH 30.3 MCHC 32.5 RDW 13.2 Plt Count 166 MPV 11.4 H Sodium 134 L Potassium 3.7 Chloride 101 Carbon Dioxide 29 BUN 18 Creatinine 0.60 L Estim Creat Clear Calc 87 Estimated GFR > 60 Glucose 133 H POC Capillary Glucose 219 H Calcium 8.5 02/11/20 02/11/20 17:23 12:18 WBC RBC Hgb Hct MCV MCH MCHC RDW Plt Count MPV Sodium Potassium Chloride Carbon Dioxide BUN Creatinine Estim Creat Clear Calc Estimated GFR Glucose POC Capillary Glucose 206 H 265 H Calcium Discharge Plan Discharge Attending physician on discharge: Mitch Martinez Consulting providers: Carter Hernandez Discharging Clinician: Mitch Martinez Anticipated Discharge Date/Time: 02/12/20 12:00 Patient Disposition:
[2020-02-13 19:41] LABS: Hepatitis B Core Ab Total Nonreactive (Nonreactive)
== END 2020-02-12 17:10 | disposition home or self-care (01) | DRG 726 ==
LOC: ANHED 06:26 → ANH3MEDSUR 07:18
PROVIDERS: Urology; Admitting Provider Family Medicine; Emergency Provider General Practice; PCP Family Medicine; Visit Provider Internal Medicine
PROC: 0TCB8ZZ Extirpation of Matter from Bladder, Via Natural or Artificial Opening Endoscopic (ICD-10-PCS; CPT 52352; principal; 2020-02-10 12:00)
DX: N40.1 Benign prostatic hyperplasia with lower urinary tract symptoms (principal); D62 Acute posthemorrhagic anemia; R31.0 Gross hematuria; R33.8 Other retention of urine; N21.0 Calculus in bladder; K74.69 Other cirrhosis of liver; E11.9 Type 2 diabetes mellitus without complications; H40.9 Unspecified glaucoma; K57.90 Diverticulosis of intestine, part unspecified, without perforation or abscess without bleeding; E78.5 Hyperlipidemia, unspecified; Z85.828 Personal history of other malignant neoplasm of skin; Z98.1 Arthrodesis status; Z87.891 Personal history of nicotine dependence
CPT/HCPCS: 36415; 51702; 74176; 80048; 80053; 80061; 82607; 82728; 82746; 83036; 83540; 83550; 84443; 85014; 85018; 85025; 85027; 85610; 85730; 86704; 86706; 86803; 86850; 86900; 86901; 87340; 93005; 99285; A9270; C1758; C1769; G0378; J0131; J0690; J1100; J2001; J2405; J2704; J3010; J7040; J7120

== ENCOUNTER 2020-02-13 10:15 | Observation (INO) | payer MEDICARE, SELFPAY ==
[2020-02-13] VITALS (28 sets, daily range): BP systolic 100–137; BP diastolic 49–82; PULSE 89–113; RESP 10–20; TEMP 35.9–37.2; O2SAT 94–100; BMI 26.8
--- NOTE | ~2020-02-13 | US_ITS ---
EXAMINATION: US pelvic limited DATE: 02/13/2020 13:22 INDICATION: Hematuria. TECHNIQUE: Multiple grayscale and Doppler ultrasound images of the pelvis were obtained. COMPARISON: CT abdomen and pelvis 02/10/2020 FINDINGS: There is hypoechoic material in the bladder lumen, consistent with hematoma. There are ston es in the bladder lumen. There is a Jonas catheter in expected position. IMPRESSION: 1. Hematoma and stones in the bladder. Reviewed, dictated and finalized at location A.
--- NOTE | 2020-02-13 10:48 | ED.ABDPAIN ---
HPI - Abdominal Pain General Chief Complaint: Urogenital-Male Stated Complaint: passing blood clots in urine/pain Time Seen by Provider: 02/13/20 10:48 Source: patient Mode of arrival: ambulatory Limitations: no limitations History of Present Illness HPI narrative: Patient has a history of BPH, hematuria presented to the emergency department for evaluation of abdominal pain and difficulty with urination. Patient states that he had a catheter removed yesterday was discharged home from this facility, has been unable to urinate overnight and throughout this morning, he is passing some small amount of urine with blood clots and blood present. Patient reports urge for urination and hesitancy. He reports lower abdominal discomfort. No fever, nausea, vomiting. Patient follows with Dr. Rodrigo Gurrola's and saw Dr. Hernandez while in the hospital. Related Data Home Medications Medication Instructions Recorded Confirmed celecoxib 200 mg capsule 200 mg PO DAILY 10/03/19 02/10/20 lisinopril 5 mg tablet 5 mg PO DAILY 10/03/19 02/10/20 metformin 500 mg tablet 500 mg PO BID 10/03/19 02/10/20 psyllium husk 0.52 gram capsule 1.04 gm PO BID cap 10/03/19 02/10/20 simvastatin 20 mg tablet 20 mg PO DAILY 10/03/19 02/10/20 aminocaproic acid 500 mg tablet 1 gm PO TID PRN 01/14/20 02/10/20 Azopt 1 drp OPHTHALMIC (EYE) BID 02/10/20 02/10/20 Lumigan 1 drp OPHTHALMIC (EYE) HS 02/10/20 02/10/20 Men's 50 Plus Multivitamin 1 tablet DAILY 02/10/20 02/10/20 Allergies Allergy/AdvReac Type Severity Reaction Status Date / Time gadobenic acid Allergy Unknown Unknown Verified 02/13/20 10:32 [From contrast - MRI] iohexol Allergy Unknown Unknown Verified 02/13/20 10:32 [From contrast - CT, X-RAY] selenium Allergy Unknown rash Verified 02/13/20 10:32 Review of Systems Review of Systems: Narrative: CONSTITUTIONAL: Denies fever CARDIOVASCULAR: Denies chest pain RESPIRATORY: Denies cough or dyspnea. 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 No tobacco use. No drug use. Full code. Nominates his to be the individual would make medical decisions for him if he is unable. He drinks 1-2 alcoholic drinks per week. Smoking packs per day: 0.5 Smoking cigarettes per day: 10.0 Years smoked: 5 Smoking pack-years: 2.50 Smoking status: Former smoker Tobacco type: cigarettes and pipe Alcohol intake: current Drinks per week: 2 Substance use: never Gender identity (if verbalized by the patient): Male Spiritual care concerns: No Exam Narrative: Exam Narrative: GENERAL: Awake, alert, uncomfortable. HEAD: Normocephalic, atraumatic. EYES: PERRLA and EOMI. ENT: Nares clear, no rhinorrhea or epistaxis. Mucous membranes moist. NECK: Supple. CHEST: No respiratory distress, breathing even and non labored HEART: Tachycardic rate, sinus rhythm ABDOMEN: Mild abdominal distention, tenderness : No scrotal edema, no testicular pain, penis is circumcised EXTREMITIES: Normal range of motion. No edema. SKIN: Warm, dry, no rash. NEURO:No focal deficits. Alert and oriented x3
[2020-02-13] MEDS: ONDANSETRON INJ 4 MG/2 ML VIAL IV PUSH (10:50)
[2020-02-13 11:39] LABS: Blood Urea Nitrogen 16 mg/dL (9-20); Calcium 9.4 mg/dL (8.4-10.2); Carbon Dioxide 23 mmol/L (22-30); Chloride 102 mmol/L (98-107); Estimated CRCL calculation 76 ml/min; Estimated Glomerular Filt Rate > 60; Glucose 184 mg/dL (75-110); Potassium 3.7 mmol/L (3.4-5.0); Sodium 135 mmol/L (137-145)
[2020-02-13] MEDS: MORPHINE SULFATE 4 MG/ML INJ IV PUSH (13:46)
[2020-02-13 14:24] LABS: Add Urine Microscopic? YES; Appearance Urine Cloudy (Clear); Bilirubin Urine Negative (Negative); Blood Urine 3+ (Negative); Color Urine Red (Yellow); Glucose Urine UA 1+ mg/dL (Negative); Ketones Urine Negative (Negative); Leukocyte Esterase Ur Negative LEU/UL (Negative); Nitrate Urine Negative (Negative); Protein Urine 3+ mg/dL (Negative); RBC Urine >75 /hpf (0-2); Urobilinogen Urine Negative mg/dL (<2.0); WBC Clumps Urine Present /HPF; WBC Urine >75 /hpf
[2020-02-13 14:32] LABS: Basophils Absolute Auto 0.1 K/mm3 (0.0-0.1); Basophils Percent Auto 0.5 % (0.2-1.2); Eosinophils Absolute Auto 0.3 K/mm3 (0-0.3); Eosinophils Percent Auto 2.1 % (0-4.4); Hematocrit 29.4 % (42.0-52.0); Hemoglobin 9.6 g/dL (14.0-18.0); Immature Granulocyte Percent A 0.8 % (0-0.5); Lymphocytes Absolute Auto 3.58 K/mm3 (0.9-3.2); Lymphocytes Percent Auto 29.3 % (18.3-44.2); Mean Corpuscular HGB Conc 32.7 g/dl (32-36); Mean Corpuscular Hemoglobin 30.7 pg (26-34); Mean Corpuscular Volume 93.9 fl (80-100); Mean Platelet Volume 12.3 fl (7.4-10.4); Monocytes Absolute Auto 1.2 K/mm3 (0.1-0.6); Monocytes Percent Auto 9.5 % (2.6-8.5); Neutrophils Percent Auto 57.8 % (45.5-73.1); Nucleated Red Blood Cells Perc 0.2 % (0.0-0.2); Platelet Count Result 236 k/mm3 (150-375); Red Blood Count 3.13 M/mm3 (4.6-6.20); Red Cell Distribution Width 13.5 % (11.5-14.5); White Blood Count 12.2 K/mm3 (4.5-10.0)
--- NOTE | 2020-02-13 14:58 | WPDANESEFPP ---
Anes - Eval Final PreProcedure Day of Procedure 02/13/20 14:58 Patient weight: overweight Heart: regular rate and rhythm Lungs: clear to auscultation Airway: Mallampati scale class II Neurological: alert and oriented Last oral intake: 6 hours (7+hours) ASA classification: III Emergent: yes Anesthetic plan: proceed Anesthesia type and monitoring: general LMA and standard monitoring Informed Consent: The patient's anesthetic plan and its attendant risks and benefits were discussed with the patient/family/POA. Questions were solicited and answers provided to the satisfaction of the patient/family/POA.
[2020-02-13] MEDS: LACTATED RINGERS 1,000 ML 30 ML IV CONT ×2 (15:00→15:56)
--- NOTE | 2020-02-13 15:10 | PC.NURSE ---
Pts can be reached at [phone]
[2020-02-13] MEDS: ceFAZolin 2 GM/D5W 50 ML 2 GM/50 ML BAG IVPB (15:16)
[2020-02-13 16:35] LABS: Hematocrit 17.4 % (42.0-52.0); Hemoglobin 5.5 g/dL (14.0-18.0)
[2020-02-13 16:35] LABS: Glucose Point of Care 179 (65-105)
--- NOTE | 2020-02-13 16:40 | SUR.PHASEI ---
1640- blood sugar checked 179. H&H 5.5/17.4, REPORTED TO DR. ACE. HE STATED TO GET PT A IMU BED. DRAW A TYPE AND SCREEN AND GIVEN 2 UNITS OF PRBC.
--- NOTE | 2020-02-13 17:01 | SUR.PHASEI ---
1656- TYPE AND SCREEN SENT TO BLOOD BANK. AWAITING 2 UNITS OF PRBC.
--- NOTE | 2020-02-13 18:19 | PM.IMHP ---
H&P: HPI History of Present Illness Chief complaint: passing blood clots in urine/pain Narrative: aide Castañeda is a 85 year old male with BPH status post TURP 10 years ago who presents emergency room with hematuria. Patient admitted initially on 02/09 for gross hematuria. [place] to be bleeding from the prostate but Cystoscopy on 02/10/20 could not find any significant bleeding from the prostate itself. CBI started but urine has cleared sufficiently enough that the CBI turned off. Urine has remained clear. Hemoglobin 16.1 on admission but has trended down to 9.1 at discharge. Related to the acute blood loss from his hematuria. Also incidentally noted to have cirrhosis. Patient discharged home on 02/12/20. At home, patient was voiding frequently with small amounts of blood and small clots noted. This morning however patient had difficulty voiding. He strained and was able to pass 3 large clots. He denies any melena or hematochezia. Pateint returns to the ED for recurrent hematuria. Hgb 9.6 on admission and patient taken directly to the OR by urology. Urology found area of bleeding on the prostate that was cauterized. Hematoma was evacuated from the bladder. In the PACU, repeat hemoglobin was 5.5. Order for blood transfusion of 2 units was placed. Patient was admitted to the IMU for further care. Patient denies any chest pain, shortness of breath, cough, lightheadedness, dizziness, fever, chills, nausea, vomiting. Does not take aspirin. 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 No tobacco use. No drug use. Full code. Nominates his to be the individual would make medical decisions for him if he is unable. He drinks 1-2 alcoholic drinks per week. Smoking packs per day: 0.5 Smoking cigarettes per day: 10.0 Years smoked: 5 Smoking pack-years: 2.50 Smoking status: Former smoker Tobacco type: cigarettes and pipe Alcohol intake: current Drinks per week: 2 Substance use: never Gender identity (if verbalized by the patient): Male Spiritual care concerns: Yes (Confucianist) Meds Home Medications and Allergies Home Medications Medication Instructions Recorded Confirmed Type celecoxib 200 mg capsule 200 mg PO DAILY 10/03/19 02/13/20 History lisinopril 5 mg tablet 5 mg PO DAILY 10/03/19 02/13/20 History metformin 500 mg tablet 500 mg PO BID 10/03/19 02/13/20 History psyllium husk 0.52 gram capsule 1.04 gm PO BID cap 10/03/19 02/13/20 History simvastatin 20 mg tablet 20 mg PO DAILY 10/03/19 02/13/20 History glimepiride 2 mg tablet 2 mg PO QAM #90 tablet 12/19/19 02/13/20 Rx Azopt 1 drp OPHTHALMIC (EYE) BID 02/10/20 02/13/20 History Lumigan 1 drp OPHTHALMIC (EYE) HS 02/10/20 02/13/20 History Men's 50 Plus Multivitamin 1 tablet DAILY 02/10/20 02/13/20 History finasteride [Proscar] 5 mg PO QAM #30 tablet 02/12/20 02/13/20 Rx
--- NOTE | 2020-02-13 18:36 | SUR.PHASEI ---
180- FRIST UNIT OF PRBC STARTED. PT AOX3. TEMP 96.6. DENIES PAIN, JUST SOME BURNING AT ANGEL CATH SITE. PIV SITE, WNL. ALLI LEWIS ON MED HEAT. 1819- REPORT GIVEN TO IMGianfranco, JOSIANE. BLOOD INFUSING ON PUMP AT 75 MLS/HR. 1835- BLOOD INFUSION RATE TURNED UP TO 100 ML/HOUR. TEMP 97.0.
--- NOTE | 2020-02-13 18:46 | ADMGEN ---
This patient, Harshal Castañeda, was admitted to -. Patient/family oriented to hospital policies and general routines including ID bracelet, bed and alarms, visiting hours, pain management, procedures, bathroom and other care routines, personal items, smoking policy, room service/diet, and visiting hours. Valuables list has been completed. Information on how to activate the Rapid Response Team has been discussed. Patient/Family are encouraged to report perceived risks to care and to ask questions if they do not understand what they are told or what they should do.
--- NOTE | 2020-02-13 20:46 | CONS_ITS ---
DATE OF CONSULTATION: 02/13/2020 HISTORY OF PRESENT ILLNESS: The patient is a very pleasant 85-year-old gentleman who has a history of BPH and underwent a TURP [address] Mello. The patient presented to the ER on 02/10/2020 at which time, he was found to have gross hematuria. He underwent a cystoscopy and clot evacuation with Dr. Hernandez on 02/10/2020 at which time, he was found to have massive prostate and multiple large bladder stones. Dr. Hernandez was able to clear the urine after removing clots and elected to leave the bladder stones in place. A catheter was placed. The urine was clear and prior to discharge, the patient had the catheter removed for a void trial. The patient was discharged home and the following day. began with gross hematuria today and returned to the ER. PAST MEDICAL HISTORY: BPH, cervical degeneration, glaucoma, hyperlipidemia, and type 2 diabetes. PAST SURGICAL HISTORY: TURP 10 years ago, history of knee repair and hernia repair. SOCIAL HISTORY: The patient lives with his . He does not smoke or use drugs. REVIEW OF SYSTEMS: Negative as mentioned in the HPI. PHYSICAL EXAMINATION: GENERAL: The patient is awake, he is alert. He is in mild discomfort. LUNGS: Breathing is unlabored. ABDOMEN: Soft, nontender, nondistended. : The patient has a Jonas catheter and is draining murphy-red urine. VITAL SIGNS: Temperature is 36, pulse is 113, respiratory rate is 13. LABORATORY DATA: Hemoglobin is 9, hematocrit is 29. Sodium 135, his creatinine is 0.7. PROCEDURE: I removed the catheter. A 3-way hematuria catheter was placed, however, I was unable to easily irrigate. I therefore was unable to clear the patient's urine at the bedside. ASSESSMENT: The patient is an 85-year-old gentleman with history of TURP in the past with a large prostate and bladder stones. The patient has recurrent hematuria. I was unable to clear him at the bedside. PLAN: The patient was to go to the OR today for cystoscopy and clot evacuation. We will likely not be able to treat his bladder stones today. We will defer repeat TURP as well as bladder stone resection if needed at a later date. The goal will be to acheive hemostasis and allow the patient's catheter drain at this time. He understands the risk of procedure including, not limited to, infection, bleeding, pain, injury to surrounding structures, and agrees to proceed, QUINN ACE M.D. PATTERN MAKER PROGRAMER PATTERN MAKER PROGRAMER D I MT: Clement GILMORE
[2020-02-13 21:04] LABS: Glucose Point of Care 157 (65-105)
--- NOTE | 2020-02-13 21:11 | OP_ITS ---
DATE OF PROCEDURE: 02/13/2020 PREOPERATIVE DIAGNOSIS: Gross hematuria. POSTOPERATIVE DIAGNOSIS: Gross hematuria. PROCEDURE PERFORMED: 1. Cystoscopy. 2. Clot evacuation. 3. Fulguration of bleeding sites in the prostatic urethra. DESCRIPTION OF PROCEDURE: Informed consent was obtained. The patient was taken to the operating room, given preoperative IV antibiotics. He was induced with anesthesia. He was prepped and draped in normal sterile fashion. A 22-Australian cystoscope was inserted through the urethra. We inspected the prostate that was massively enlarged with trilobar hyperplasia and some residual defect from his previous TURP. We entered the bladder that was full of clot. We then switched to a resectoscope, we were able using a Brisa syringe to evacuate clot. At this point, we were able to clear all clots from the bladder leaving only multiple large bladder stones. At this point, with careful inspection we noted bleeding from the right lateral lobe of the prostate. Using a 3 mm rollerball, we were able to fulgurate these areas and quiet down this bleeding. At this point, we inspected and there was minimal persistent bleeding from the prostatic urethra. No bleeding was noted from the bladder. There were no tumors noted. There remained multiple large stones, despite some stones being removed with the Brisa syringe. At this point, a 22-Australian 3-way catheter was inserted. CBI was started with return of clear urine. The patient was awakened and taken to recovery room in stable condition. IV FLUIDS: Per Anesthesia. COMPLICATIONS: None. ESTIMATED BLOOD LOSS: 300 mL of blood clot removed from the bladder. FOLLOWUP: The patient will remain in the hospital on continuous bladder irrigation. We will monitor him closely. He will likely need deferred management of his recurrent hematuria and bladder stones down the road. D I MT: Clement GILMORE
[2020-02-13] MEDS: ACETAMINOPHEN 325 MG TABLET 650 MG PO (21:26)
[2020-02-13] MEDS: BRINZOLAMIDE 1% OPHTH SUSP 10 ML 1 DROP EACH EYE (21:27)
[2020-02-14] VITALS (11 sets, daily range): BP systolic 100–118; BP diastolic 47–67; PULSE 85–108; RESP 12–20; TEMP 36.3–37.2; O2SAT 96–100
[2020-02-14 01:13] LABS: Hematocrit 26.5 % (42.0-52.0); Hemoglobin 8.7 g/dL (14.0-18.0)
[2020-02-14 04:39] LABS: Hematocrit 26.4 % (42.0-52.0); Hemoglobin 8.6 g/dL (14.0-18.0); Mean Corpuscular HGB Conc 32.6 g/dl (32-36); Mean Corpuscular Hemoglobin 29.6 pg (26-34); Mean Corpuscular Volume 90.7 fl (80-100); Mean Platelet Volume 10.8 fl (7.4-10.4); Platelet Count Result 142 k/mm3 (150-375); Red Blood Count 2.91 M/mm3 (4.6-6.20); Red Cell Distribution Width 14.1 % (11.5-14.5); White Blood Count 8.8 K/mm3 (4.5-10.0)
[2020-02-14 04:52] LABS: Blood Urea Nitrogen 11 mg/dL (9-20); Calcium 8.3 mg/dL (8.4-10.2); Carbon Dioxide 29 mmol/L (22-30); Chloride 103 mmol/L (98-107); Estimated CRCL calculation 87 ml/min; Estimated Glomerular Filt Rate > 60; Glucose 127 mg/dL (75-110); Sodium 134 mmol/L (137-145)
[2020-02-14 07:51] LABS: Glucose Point of Care 139 (65-105)
[2020-02-14] MEDS: FINASTERIDE 5 MG TABLET PO (08:22)
[2020-02-14] MEDS: LATANOPROST 0.005% OP SOLN 2.5 ML BTL 1 DROP EACH EYE (08:22)
[2020-02-14] MEDS: GLIMEPIRIDE 2 MG TABLET PO (08:22)
--- NOTE | 2020-02-14 09:07 | WPDUROPN2 ---
Progress Note: A&P Additional Plan Clamp CBI and observe today. Restart if hematuria returns Subjective Subjective Date/Time Seen: 02/14/20 09:07 feels well; urine is clear on a slow CBI Exam Narrative: Exam Narrative: Folecy catheter is in place. Urine is clear Objective Data Vital Signs Vital Signs: Vital Signs - 24 hr 02/13/20 10:22 02/13/20 12:15 02/13/20 14:02 Temperature 36.8 C Pulse Rate 113 H 91 89 Respiratory Rate 13 15 18 Blood Pressure 137/82 135/74 135/74 Pulse Oximetry 97 100 100 02/13/20 15:00 02/13/20 15:56 02/13/20 16:15 Temperature 37.2 C 36.3 C L Pulse Rate 109 H 102 H 100 Respiratory Rate 20 14 18 Blood Pressure 114/61 116/68 115/64 Pulse Oximetry 99 100 99 02/13/20 16:30 02/13/20 16:45 02/13/20 17:00 Temperature 36.2 C L Pulse Rate 95 96 96 Respiratory Rate 14 15 16 Blood Pressure 122/65 123/63 119/59 L Pulse Oximetry 100 99 98 02/13/20 17:15 02/13/20 17:30 02/13/20 17:45 Temperature Pulse Rate 101 H 96 107 H Respiratory Rate 15 14 10 L Blood Pressure 119/59 L 123/63 116/58 L Pulse Oximetry 98 98 99 02/13/20 18:00 02/13/20 18:09 02/13/20 18:14 Temperature 35.9 C L 36.3 C L Pulse Rate 109 H 110 H 111 H Respiratory Rate 14 16 14 Blood Pressure 119/57 L 119/57 L 118/55 L Pulse Oximetry 97 97 94 02/13/20 18:15 02/13/20 18:29 02/13/20 18:33 Temperature 36.4 C L Pulse Rate 109 H 112 H 112 H Respiratory Rate 16 18 15 Blood Pressure 118/55 L 122/60 119/57 L Pulse Oximetry 96 95 96 02/13/20 19:14 02/13/20 19:39 02/13/20 19:54 Temperature 36.4 C L 36.3 C L 36.1 C L Pulse Rate 111 H 98 98 Respiratory Rate 20 18 18 Blood Pressure 109/53 L 100/51 L 116/58 L Pulse Oximetry 100 100 99 02/13/20 20:00 02/13/20 20:54 02/13/20 21:40 Temperature 36.1 C L 36.5 C Pulse Rate 96 95 92 Respiratory Rate 18 16 Blood Pressure 119/72 116/57 L Pulse Oximetry 100 100 02/13/20 21:57 02/13/20 22:00 02/13/20 22:57 Temperature 36.6 C 36.8 C Pulse Rate 91 96 89 Respiratory Rate 16 18 Blood Pressure 106/50 L 103/54 L Pulse Oximetry 100 99 02/13/20 23:57 02/14/20 00:00 02/14/20 02:00 Temperature 36.6 C Pulse Rate 89 85 90 Respiratory Rate 18 Blood Pressure 109/49 L Pulse Oximetry 100 02/14/20 04:00 02/14/20 06:00 02/14/20 08:00 Temperature 36.3 C L 36.6 C Pulse Rate 89 94 90 Respiratory Rate 18 12 Blood Pressure 106/57 L 100/47 L Pulse Oximetry 100 100 Intake/Output Intake/Output: Intake & Output 02/11/20 02/12/20 02/13/20 02/14/20 23:59 23:59 23:59 23:59 Intake Total 1450 350 Output Total 775 2100 Balance 675 -1750 Meds/Results Medications: Active Medications Generic Name Dose Route Start Last Admin Trade Name Freq PRN Reason Stop Dose Admin Acetaminophen 650 mg 02/13/20 19:20 02/13/20 21:26 Tylenol Tablet PO 650 mg Q6H PRN Administration Mild Pain (1-3) or Fever Brinzolamide 1 drop 02/13/20 21:00 02/13/20 21:27 Azopt Ophth Jailyn EACH EYE 1 drop HS JIMI Administration Dextrose 12.5 gm 02/13/20 19:19 Dextrose 50% Syringe IV PUSH PRN PRN Hypoglycemia Protocol Finasteride 5 mg 02/14/20 09:00 02/14/20 08:22 Proscar PO 5 mg QAM JIMI Administration Glimepiride 2 mg 02/14/20 08:00 02/14/20 08:22 Amaryl PO 2 mg DAILY@0800 JIMI Administration Glucagon 1 mg 02/13/20 19:19 Glucagon For Inj IM PRN PRN Hypoglycemia Protocol Glucose 15 gm 02/13/20 19:19 Glutose 15 PO PRN PRN Hypoglycemia Protocol Dextrose 1,000 mls @ 100 mls/hr 02/13/20 19:19 Dextrose 5% 1,000 Ml IVPB PRN PRN Hypoglycemia Protocol Insulin Aspart 2 - 5 units 02/14/20 08:00 02/14/20 07:58 Novolog SUB-Q Not Given TIDWM JIMI Protocol Latanoprost 1 drop 02/14/20 09:00 02/14/20 08:22 Xalatan EACH EYE 1 drop DAILY JIMI Administration Lisinopril 5 mg 02/14/20 09:00 02/14/20 08:25 Rosa
[2020-02-14] MEDS: ACETAMINOPHEN 325 MG TABLET 650 MG PO ×2 (09:12→20:15)
[2020-02-14 12:07] LABS: Glucose Point of Care 137 (65-105)
--- NOTE | 2020-02-14 12:54 | PM.IMPN ---
Progress Note: A&P Assessment and Plan (1) Hematuria, gross: Code(s): R31.0 - Gross hematuria Status: Acute Assessment and Plan: Patient with gross hematuria initially admitted on 02/10/20 related to BPH and sitting on a hard seat. Cystoscopy on 02/10/20 could not find any significant bleeding from the prostate itself. Urine cleared. Patient discharged home on finesteride. Patient returns for gross hematuria probably made worse with straining. Pelvic US showing hematoma and bladder stones. Repeat cystoscopy with hematoma evacuation and noted bleeding from the right lateral lobe of the prostate with fulguration. Urine culture pending. Follow up on urine culture. Was on abx post procedure but will add Rocephin as culture is pending. (2) Acute blood loss anemia: Code(s): D62 - Acute posthemorrhagic anemia Status: Acute Assessment and Plan: Hemoglobin 16.1 on original admission but trended down to 9.1 at discharge. Related to the acute blood loss from his hematuria. No other source of blood loss. Hgb 9.6 on this admission here but dropped to 5.5 post-procedure yesterday. Urology felt there may have been arterial bleeding which could explain the brisk blood loss. Patient received 2 units of packed red blood cells. Hemoglobin this morning is 8.6. Continue to monitor. (3) BPH NOS w/o ur obs/LUTS: Code(s): N40.0 - Benign prostatic hyperplasia without lower urinary tract symptoms Status: Acute Assessment and Plan: Patient is status post TURP 10 years ago. He was not on medications for BPH on first admission and was discharged home on Finasteride. Appreciate urology input. Finasteride has been continued. (4) Cirrhosis: Qualifiers: Hepatic cirrhosis type: unspecified hepatic cirrhosis Ascites presence: without ascites Qualified Code(s): K74.60 - Unspecified cirrhosis of liver Code(s): K74.60 - Unspecified cirrhosis of liver Status: Acute Assessment and Plan: CT scan at prior admission shows diffuse hepatic steatosis and some liver surface nodularity consistent with cirrhosis. LFTs and coagulopathy panel normal. Most likely this is related to nonalcoholic fatty liver disease. Workup including hepatitis panel and lipid panel were unrevealing. (5) Type 2 diabetes mellitus without complications: Qualifiers: Diabetes mellitus senior living insulin use: without senior living use Qualified Code(s): E11.9 - Type 2 diabetes mellitus without complications Code(s): E11.9 - Type 2 diabetes mellitus without complications Status: Acute Assessment and Plan: A1c 6.8 at last admission. Glucose well controlled. Continue Amaryl and metformin. Continue sliding scale protocol. Continue diabetic diet (6) DVT prophylaxis: Code(s): Z29.9 - Encounter for prophylactic measures, unspecified Status: Acute Assessment and Plan: SCDs Subjective Date/time seen: 02/14/20 12:54 Interval history: 85yo male here for recurrent hematuria. No issues overnight. No complaints today. Urine has cleared. Patient did notice some dark blood for around the Jonas earlier today. He denies any chest pain, shortness of breath or cough. Exam Narrative: Exam Narrative: Gen -no acute distress Chest -clear to auscultation bilaterally. CV -regular rate and rhythm. S1-S2. Telemetry showing PVCs. Abd -soft. Nontender. Nondistended. Positive bowel sounds. -Jonas catheter secured with clear yellow urine in the bag Ext - No pedal edema. Psych - Nml mood and affect Skin - Warm and dry Objective Data Vital Signs Vital Signs: Vital Signs - 24 hr 02/13/20 14:02 02/13/20 15:00 02/13/20 15:56 Temperature 98.9 F 97.3 F L Pulse Rate 89 109 H 102 H Respiratory Rate 18 20 14 Blood Pressure 135/74 114/61 116/68 Pulse Oximetry 100 99 100 02/13/20 16:15 02/13/20 16:30 02/13/20 16:45 Temperature 97.2 F
--- NOTE | 2020-02-14 16:22 | PC.NURSE ---
This patient, Harshal Castañeda, was transferred to [facility] on 02/14/20 at 1622. Personal belongings sent with patient. Belongings list checked and signed with receiving RN. Report given to JOSIANE Mejias. Appropriate documentation sent with patient.
[2020-02-14 17:27] LABS: Glucose Point of Care 127 (65-105)
[2020-02-14] MEDS: SIMVASTATIN 20 MG TABLET PO (20:10)
[2020-02-14] MEDS: BRINZOLAMIDE 1% OPHTH SUSP 10 ML 1 DROP EACH EYE (20:10)
[2020-02-14 21:48] LABS: Glucose Point of Care 179 (65-105)
[2020-02-15 03:49] VITALS: BP 135/65; PULSE 97; RESP 12; TEMP 36.4; O2SAT 100
[2020-02-15 06:26] LABS: Hematocrit 27.8 % (42.0-52.0); Hemoglobin 9.1 g/dL (14.0-18.0); Mean Corpuscular HGB Conc 32.7 g/dl (32-36); Mean Corpuscular Hemoglobin 29.9 pg (26-34); Mean Corpuscular Volume 91.4 fl (80-100); Mean Platelet Volume 10.8 fl (7.4-10.4); Platelet Count Result 172 k/mm3 (150-375); Red Blood Count 3.04 M/mm3 (4.6-6.20); Red Cell Distribution Width 14.6 % (11.5-14.5); White Blood Count 7.7 K/mm3 (4.5-10.0)
[2020-02-15 06:48] LABS: Blood Urea Nitrogen 11 mg/dL (9-20); Calcium 8.6 mg/dL (8.4-10.2); Carbon Dioxide 29 mmol/L (22-30); Chloride 103 mmol/L (98-107); Estimated CRCL calculation 76 ml/min; Estimated Glomerular Filt Rate > 60; Glucose 162 mg/dL (75-110); Potassium 3.9 mmol/L (3.4-5.0); Sodium 136 mmol/L (137-145)
[2020-02-15 07:49] LABS: Glucose Point of Care 153 (65-105)
[2020-02-15] MEDS: ACETAMINOPHEN 325 MG TABLET 650 MG PO (08:51)
[2020-02-15] MEDS: FINASTERIDE 5 MG TABLET PO (08:51)
[2020-02-15] MEDS: GLIMEPIRIDE 2 MG TABLET PO (08:51)
[2020-02-15] MEDS: LATANOPROST 0.005% OP SOLN 2.5 ML BTL 1 DROP EACH EYE (08:54)
[2020-02-15] MEDS: BRINZOLAMIDE 1% OPHTH SUSP 10 ML 1 DROP EACH EYE (08:54)
--- NOTE | 2020-02-15 11:39 | WPDUROPN2 ---
Progress Note: A&P Additional Plan Hematuria resolved after clot evacuation and fulguration by Dr. Moreno. OK for d/c to home with current Jonas catheter from urology perspective. Patient will call Dr. Jaffe for next plan regarding definitive therapy for the prostate regrowth and bleeding. Subjective Subjective Date/Time Seen: 02/15/20 11:39 - CBI off; urine clear; wants to go home Exam Narrative: Exam Narrative: urine is clear yellow with CBI off Objective Data Vital Signs Vital Signs: Vital Signs - 24 hr 02/14/20 11:58 02/14/20 12:00 02/14/20 14:03 Temperature 36.4 C Pulse Rate 101 H 102 H 108 H Respiratory Rate 16 Blood Pressure 103/52 L Pulse Oximetry 96 02/14/20 15:38 02/14/20 20:09 02/15/20 03:49 Temperature 36.6 C 37.2 C 36.4 C Pulse Rate 107 H 102 H 97 Respiratory Rate 20 16 12 Blood Pressure 110/50 L 118/67 135/65 Pulse Oximetry 97 98 100 Intake/Output Intake/Output: Intake & Output 02/12/20 02/13/20 02/14/20 02/15/20 23:59 23:59 23:59 23:59 Intake Total 1450 2446 300 Output Total 895 3354 6899 Balance 104 -2029 -2746 Meds/Results Medications: Active Medications Generic Name Dose Route Start Last Admin Trade Name Freq PRN Reason Stop Dose Admin Acetaminophen 650 mg 02/13/20 19:20 02/15/20 08:51 Tylenol Tablet PO 650 mg Q6H PRN Administration Mild Pain (1-3) or Fever Brinzolamide 1 drop 02/14/20 21:00 02/15/20 08:54 Azopt Ophth Jailyn EACH EYE 1 drop Q12HR JIMI Administration Dextrose 12.5 gm 02/13/20 19:19 Dextrose 50% Syringe IV PUSH PRN PRN Hypoglycemia Protocol Finasteride 5 mg 02/14/20 09:00 02/15/20 08:51 Proscar PO 5 mg QAM JIMI Administration Glimepiride 2 mg 02/14/20 08:00 02/15/20 08:51 Amaryl PO 2 mg DAILY@0800 JIMI Administration Glucagon 1 mg 02/13/20 19:19 Glucagon For Inj IM PRN PRN Hypoglycemia Protocol Glucose 15 gm 02/13/20 19:19 Glutose 15 PO PRN PRN Hypoglycemia Protocol Dextrose 1,000 mls @ 100 mls/hr 02/13/20 19:19 Dextrose 5% 1,000 Ml IVPB PRN PRN Hypoglycemia Protocol Ceftriaxone Sodium/Dextrose 1 gm in 50 mls @ 100 mls/hr 02/14/20 14:00 02/14/20 15:00 Rocephin 1 Gm/D5w 50 Ml IVPB Infused Q24H JIMI Infusion Insulin Aspart 2 - 5 units 02/14/20 08:00 02/15/20 07:53 Novolog SUB-Q Not Given TIDWM [facility] Protocol Latanoprost 1 drop 02/14/20 09:00 02/15/20 08:54 Xalatan EACH EYE 1 drop DAILY JIMI Administration Lisinopril 5 mg 02/14/20 09:00 02/14/20 08:25 Prinivil PO Not Given DAILY [facility] Morphine Sulfate 4 mg 02/13/20 14:36 Morphine Sulfate Inj IV PUSH Q2H PRN Pain Rated 7-10 Oxycodone HCl 5 mg 02/13/20 14:58 Roxicodone Ir Tablet PO ONCE PRN Pain Simvastatin 20 mg 02/14/20 21:00 02/14/20 20:10 Zocor PO 20 mg HS JIMI Administration Radiology Results: ITS Impressions Pelvis Ultrasound 02/13/20 13:47 IMPRESSION: 1. Hematoma and stones in the bladder. Labs Labs: Laboratory Results - last 24 hr 02/14/20 02/14/20 02/14/20 12:04 17:21 21:45 WBC RBC Hgb Hct MCV MCH MCHC RDW Plt Count MPV Sodium Potassium Chloride Carbon Dioxide BUN Creatinine Estim Creat Clear Calc Estimated GFR Glucose POC Capillary Glucose 137 H 127 H 179 H Calcium 02/15/20 02/15/20 02/15/20 05:58 05:58 07:46 WBC 7.7 RBC 3.04 L Hgb 9.1 L Hct 27.8 L MCV 91.4 MCH 29.9 MCHC 32.7 RDW 14.6 H Plt Count 172 MPV 10.8 H Sodium 136 L Potassium 3.9 Chloride 103 Carbon Dioxide 29 BUN 11 Creatinine 0.70 Estim Creat Clear Calc 76 Estimated GFR > 60 Glucose 162 H POC Capillary Glucose 153 H Calcium 8.6
[2020-02-15 11:40] LABS: Glucose Point of Care 164 (65-105)
--- NOTE | 2020-02-15 12:58 | PM.DS ---
DS: Diagnosis Admitting Diagnosis Admitting Diagnosis: Gross hematuria Discharge Diagnosis (1) Hematuria, gross: Code(s): R31.0 - Gross hematuria Status: Acute Assessment and Plan: Patient with gross hematuria initially admitted on 02/10/20 related to BPH and sitting on a hard seat. Cystoscopy on 02/10/20 could not find any significant bleeding from the prostate itself. Urine cleared. Patient discharged home on finesteride. Patient returns for gross hematuria probably made worse with straining. Pelvic US showing hematoma and bladder stones. Repeat cystoscopy with hematoma evacuation and noted bleeding from the right lateral lobe of the prostate s/p fulguration on 02/12. Urine culture showing multiple organisms present each <10K not consistent with active infection. (2) Acute blood loss anemia: Code(s): D62 - Acute posthemorrhagic anemia Status: Acute Assessment and Plan: Hemoglobin 16.1 on original admission but trended down to 9.1 at discharge. Related to the acute blood loss from his hematuria. No other source of blood loss. Hgb 9.6 on this admission here but dropped to 5.5 post-procedure. Urology felt there may have been arterial bleeding which could explain the brisk blood loss. Patient received 2 units of packed red blood cells and Hgb climbed to 8.7. Hemoglobin this morning is 9.1. (3) BPH NOS w/o ur obs/LUTS: Code(s): N40.0 - Benign prostatic hyperplasia without lower urinary tract symptoms Status: Acute Assessment and Plan: Patient is status post TURP 10 years ago. He was not on medications for BPH on first admission and was discharged home on Finasteride. Appreciate urology input. Finasteride has been continued. (4) Cirrhosis: Qualifiers: Hepatic cirrhosis type: unspecified hepatic cirrhosis Ascites presence: without ascites Qualified Code(s): K74.60 - Unspecified cirrhosis of liver Code(s): K74.60 - Unspecified cirrhosis of liver Status: Acute Assessment and Plan: CT scan at prior admission shows diffuse hepatic steatosis and some liver surface nodularity consistent with cirrhosis. LFTs, iron studies and coagulopathy panel normal. Most likely this is related to nonalcoholic fatty liver disease. Workup including hepatitis panel and lipid panel were unrevealing. (5) Type 2 diabetes mellitus without complications: Qualifiers: Diabetes mellitus [facility] insulin use: without intermediate teacher use Qualified Code(s): E11.9 - Type 2 diabetes mellitus without complications Code(s): E11.9 - Type 2 diabetes mellitus without complications Status: Acute Assessment and Plan: A1c 6.8 at last admission. Glucose remained well controlled. We continued Amaryl. He was covered with sliding scale protocol. we continued diabetic diet DS: Summary Hospital Course Reason for hospitalization: 85yo male here for recurrent hematuria. Please see H&P for details. Hospital Course: As above Time Spent with Patient Time attestation: Total time spent providing and/or coordinating discharge services:31 minutes Time spent: Greater than 30 minutes Exam Narrative: Exam Narrative: Gen -no acute distress Chest -clear to auscultation bilaterally. CV -regular rate and rhythm. S1-S2 Abd -soft. Nontender. Nondistended. Positive bowel sounds. -Jonas catheter secured to leg bag with clear yellow urine in the bag Ext - No pedal edema. Psych - Nml mood and affect Skin - Warm and dry DS: Data Data Completed and Pending Labs on day of discharge: Labs from last 24 hours 02/15/20 02/15/20 02/15/20 11:32 07:46 05:58 WBC RBC Hgb Hct MCV MCH MCHC RDW Plt Count MPV Sodium 136 L Potassium 3.9 Chloride 103 Carbon Dioxide 29 BUN 11 Creatinine 0.70 Estim Creat Clear Calc 76 Estimated GFR > 60 Glucose 162 H POC Capillary Glucose 164 H 153 H
--- NOTE | 2020-02-18 09:53 | PC.NURSE ---
Hep B core- negative. Dr. Juan ya.
== END 2020-02-15 14:18 | disposition home or self-care (01) ==
LOC: ANHED 14:42 → ANHSURGERY 14:46 → ANHIMU 02-14 07:09 → ANH3MED 02-14 23:34 → ANHED 02-19 09:34 → ANHSURGERY 02-19 09:34 → ANH3MED 02-19 09:35 → ANHIMU 02-19 09:35
PROVIDERS: Urology; Admitting Provider Internal Medicine; Emergency Provider Emergency Medicine; PCP Family Medicine; Visit Provider Internal Medicine
PROC: 0TCB8ZZ Extirpation of Matter from Bladder, Via Natural or Artificial Opening Endoscopic (ICD-10-PCS; CPT 52001; principal; 2020-02-13 15:00)
DX: R31.0 Gross hematuria (principal); N21.0 Calculus in bladder; D62 Acute posthemorrhagic anemia; N40.0 Benign prostatic hyperplasia without lower urinary tract symptoms; E11.9 Type 2 diabetes mellitus without complications; K74.60 Unspecified cirrhosis of liver; Z87.891 Personal history of nicotine dependence; Z96.649 Presence of unspecified artificial hip joint
CPT/HCPCS: 52001; 36415; 36430; 76857; 80048; 81001; 85014; 85018; 85025; 85027; 86850; 86900; 86901; 86923; 87086; 87088; 96361; 96365; 96374; 96375; 96376; 99285; A9270; G0378; J0690; J0696; J2270; J2405; J2704; J3010; J7040; J7120; P9016

== ENCOUNTER 2020-02-16 03:04 | Emergency (ER) | payer MEDICARE, SELFPAY ==
--- NOTE | ~2020-02-16 | CT_ITS ---
EXAMINATION: CT abdomen pelvis wo con DATE: 02/16/2020 04:13 INDICATION: Hematuria. Recent prostate procedure. Removal of clots from urinary bladder. TECHNIQUE: Computed tomography (CT) of the abdomen and pelvis was performed without intravenous contr ast. Automated exposure control and iterative reconstruction technique were employed. Exam dose: 694 .69 mGy-cm total exam DLP. COMPARISON: 02/10/2020 CT abdomen pelvis noncontrast examination FINDINGS: There is a band of discoid atelectasis or scarring in the posteromedial basilar left lower lobe. There is no infiltrate or consolidation in the included lower lung zones. Normal heart size. No pericardial or pleural effusion. There are numerous stones layering in the dependent aspect of the gallbladder, with some possible mil k of calcium bile. No gallbladder wall thickening or pericholecystic fluid or stranding is detected. Occasional calcified hepatic and splenic granulomas consistent with old granulomatous disease. 2.7 cm exophytic medial upper pole left renal cyst. Hepatic steatosis. No hepatic or splenic, pancreatic, adrenal space-occupying mass lesion. Normal caliber of the abdominal aorta. There are numerous diverticula of the sigmoid and descending colon and splenic flexure as well as néstor e diverticulosis of the ascending colon. No CT evidence of diverticulitis is detected. No bowel obstr uction or intraperitoneal free air. A Jonas catheter is present within the evacuated urinary bladder. There are multiple bladder stones. There is prostate enlargement and calcification. Small fat-containing umbilical hernia. Small fat-containing left inguinal hernia. Degenerative changes of the thoracic and lumbar spine. IMPRESSION: Jonas catheter within the evacuated urinary bladder; multiple bladder stones Prostate enlargement Diverticulosis of the colon; no CT evidence of diverticulitis Cholelithiasis 2.7 cm left renal cyst Hepatic steatosis Reviewed, dictated and finalized at [facility]. Reviewed, dictated and finalized at location A. IMPRESSION: Jonas catheter within the evacuated urinary bladder; multiple blad angelito stones Prostate enlargement Diverticulosis of the colon; no CT evidence of diverticulitis Cholelithiasis 2.7 cm left renal cyst Hepatic steatosis
[2020-02-16 03:06] VITALS: BP 141/68; PULSE 105; RESP 20; TEMP 36.4; O2SAT 100
--- NOTE | 2020-02-16 03:12 | ED.MALEGU ---
HPI - Male Genitourinary General Chief complaint: Urogenital-Male Stated complaint: cath prob Time Seen by Provider: 02/16/20 03:08 History of Present Illness HPI Narrative: Patient is an 85-year-old male who presents the ER with hematuria. Patient has an indwelling Laurent catheter. He has massive BPH and had been having gross hematuria on 02/10/2020. He is admitted to the hospital and had a cystoscopy and for which there is no obvious source of bleeding. He then was discharged and returned to the hospital. It was discovered that he had a large hematoma within the bladder and then he had an arterial bleed. He was acutely anemic and received blood transfusion. Tonight patient reports he went to the bathroom and nearly pulled his catheter out when it got caught. He thinks that it was alf out. He has no pain at this time but has hematuria in the bag. When the Laurent pulled he reports a lot of urine came out from around his Laurent catheter as well as some blood but no actual clot. Denies any fevers or chills or sweats. Contacted on-call nurses line, but was hopeful that he can follow-up in clinic but the hematuria developed and he came here for further evaluation. Related Data Home Medications Medication Instructions Recorded Confirmed celecoxib 200 mg capsule 200 mg PO DAILY 10/03/19 02/16/20 lisinopril 5 mg tablet 5 mg PO DAILY 10/03/19 02/16/20 metformin 500 mg tablet 500 mg PO BID 10/03/19 02/16/20 psyllium husk 0.52 gram capsule 1.04 gm PO BID cap 10/03/19 02/16/20 simvastatin 20 mg tablet 20 mg PO DAILY 10/03/19 02/16/20 Azopt 1 drp OPHTHALMIC (EYE) BID 02/10/20 02/16/20 Lumigan 1 drp OPHTHALMIC (EYE) HS 02/10/20 02/16/20 Men's 50 Plus Multivitamin 1 tablet DAILY 02/10/20 02/16/20 Allergies Allergy/AdvReac Type Severity Reaction Status Date / Time gadobenic acid Allergy Unknown Unknown Verified 02/16/20 03:09 [From contrast - MRI] iohexol Allergy Unknown Unknown Verified 02/16/20 03:09 [From contrast - CT, X-RAY] selenium Allergy Unknown rash Verified 02/16/20 03:09 Review of Systems Review of Systems: All systems reviewed & are unremarkable except as noted in HPI and below Constitutional: Constitutional: Denies chills, Denies fever(s) and Denies weakness ENT: Denies nasal congestion and Denies sore throat Gastrointestinal: Gastrointestinal: Denies abdominal pain, Denies nausea and Denies vomiting Genitourinary: Genitourinary: Reports hematuria and Denies dysuria PMFSH Social History Social History Social History: Lives at home with his . No tobacco use. No drug use. Full code. Nominates his to be the individual would make medical decisions for him if he is unable. He drinks 1-2 alcoholic drinks per week. Smoking packs per day: 0.5 Smoking cigarettes per day: 10.0 Years smoked: 5 Smoking pack-years: 2.50 Smoking status: Former smoker Tobacco type: cigarettes and pipe Alcohol intake: current Drinks per week: 2 Substance use: never Gender identity (if verbalized by the patient): Male Spiritual care concerns: Yes (Church) Exam Narrative: Exam Narrative: GENERAL: Well-appearing, well-nourished, and in no acute distress. HEAD: Normocephalic, atraumatic. ENT: Mucous membranes moist. CHEST: Clear to auscultation. No respiratory distress. HEART: Regular rate and rhythm. Normal peripheral pulses. ABDOMEN: Soft, nontender, nondistended. : Normal appearing anatomy with 3-way laurent coming out of the urethral meatus. No residual blood or discharge. EXTREMITIES: Normal range of motion. No edema. NEURO: No focal deficits. Alert and oriented x3. PSYCH: Normal mood and affect. Course Course Emergency Course: Patient is post call Dr. Moreno's office first thing in the morning and can be seen. No evidence of infection or acute issue at this time. Montgomery comfortable with discharge so he can call the office to s
[2020-02-16 03:55] LABS: Basophils Percent Auto 0.4 % (0.2-1.2); Eosinophils Absolute Auto 0.4 K/mm3 (0-0.3); Eosinophils Percent Auto 5.3 % (0-4.4); Hematocrit 27.7 % (42.0-52.0); Hemoglobin 9.2 g/dL (14.0-18.0); Immature Granulocyte Absolute 0.08 K/mm3 (0.00-0.031); Immature Granulocyte Percent A 1.1 % (0-0.5); Lymphocytes Absolute Auto 1.73 K/mm3 (0.9-3.2); Lymphocytes Percent Auto 23.7 % (18.3-44.2); Mean Corpuscular HGB Conc 33.2 g/dl (32-36); Mean Corpuscular Hemoglobin 30.2 pg (26-34); Mean Corpuscular Volume 90.8 fl (80-100); Mean Platelet Volume 10.3 fl (7.4-10.4); Monocytes Absolute Auto 0.6 K/mm3 (0.1-0.6); Monocytes Percent Auto 8.5 % (2.6-8.5); Neutrophils Absolute Auto 4.5 K/mm3 (1.3-6.7); Nucleated Red Blood Cells Perc 0.3 % (0.0-0.2); Platelet Count Result 178 k/mm3 (150-375); Red Blood Count 3.05 M/mm3 (4.6-6.20); Red Cell Distribution Width 14.5 % (11.5-14.5); White Blood Count 7.3 K/mm3 (4.5-10.0)
[2020-02-16 04:09] LABS: Blood Urea Nitrogen 14 mg/dL (9-20); Calcium 9.2 mg/dL (8.4-10.2); Carbon Dioxide 26 mmol/L (22-30); Chloride 106 mmol/L (98-107); Estimated CRCL calculation 76 ml/min; Estimated Glomerular Filt Rate > 60; Glucose 174 mg/dL (75-110); Potassium 3.7 mmol/L (3.4-5.0); Sodium 136 mmol/L (137-145)
[2020-02-16 04:30] LABS: Add Urine Microscopic? YES; Appearance Urine Cloudy (Clear); Bacteria Urine Trace /hpf; Bilirubin Urine Negative (Negative); Blood Urine 3+ (Negative); Glucose Urine UA 2+ mg/dL (Negative); Ketones Urine Negative (Negative); Leukocyte Esterase Ur 1+ LEU/UL (Negative); Mucus Urine Few /lpf; Nitrate Urine Negative (Negative); Protein Urine 2+ mg/dL (Negative); RBC Urine >75 /hpf (0-2); Specific Grav Ur 1.011 (1.001-1.035); Squamous Epithelial Cell Urine Rare /hpf (Few); Urobilinogen Urine Negative mg/dL (<2.0); WBC Urine 51-75 /hpf
[2020-02-16 04:52] VITALS: BP 131/69; PULSE 95; RESP 16; O2SAT 98
[2020-02-16 05:35] LABS: Color Urine Amber (Yellow)
[2020-02-16 05:45] VITALS: BP 126/68; PULSE 94; RESP 18; O2SAT 98
== END 2020-02-16 05:50 | disposition home or self-care (01) ==
PROVIDERS: Emergency Provider Emergency Medicine; PCP Family Medicine
DX: R31.9 Hematuria, unspecified (principal); T83.9XXA Unspecified complication of genitourinary prosthetic device, implant and graft, initial encounter; Z87.891 Personal history of nicotine dependence
CPT/HCPCS: 36415; 74176; 80048; 81001; 85025; 87077; 87086; 87088; 87186; 99284

== ENCOUNTER 2020-03-18 14:12 | Outpatient (CLI) | payer MEDICARE, SELFPAY ==
[2020-03-18 14:45] LABS: Hematocrit 43.8 % (42.0-52.0); Hemoglobin 13.6 g/dL (14.0-18.0); Mean Corpuscular HGB Conc 31.1 g/dl (32-36); Mean Corpuscular Hemoglobin 29.9 pg (26-34); Mean Corpuscular Volume 96.3 fl (80-100); Mean Platelet Volume 10.8 fl (7.4-10.4); Platelet Count Result 232 k/mm3 (150-375); Red Blood Count 4.55 M/mm3 (4.6-6.20); Red Cell Distribution Width 13.9 % (11.5-14.5); White Blood Count 5.2 K/mm3 (4.5-10.0)
== END 2020-03-18 14:13 | disposition home or self-care (01) ==
LOC: ANHSURGERY 14:15
PROVIDERS: Internal Medicine; PCP Family Medicine; Visit Provider Urology
DX: N21.0 Calculus in bladder (principal); D62 Acute posthemorrhagic anemia
CPT/HCPCS: 36415; 85027; 87086

== ENCOUNTER 2020-03-22 00:15 | Outpatient (CLI) | payer MEDICARE, SELFPAY ==
[2020-03-22 17:13] LABS: SARS-CoV-2 RNA PCR Negative
== END 2020-03-22 00:16 | disposition home or self-care (01) ==
LOC: ANHCOVIDDT 00:15
PROVIDERS: PCP Family Medicine; Visit Provider Urology
DX: Z01.812 Encounter for preprocedural laboratory examination (principal); Z11.59 Encounter for screening for other viral diseases
CPT/HCPCS: 87635; C9803; U0003

== ENCOUNTER 2020-03-25 14:28 | Observation (INO) | payer MEDICARE, SELFPAY ==
[2020-03-17 13:18] VITALS: BMI 27.1
[2020-03-24] VITALS (8 sets, daily range): BP systolic 111–135; BP diastolic 52–90; PULSE 87–107; RESP 13–20; TEMP 36.3–36.7; O2SAT 95–100; BMI 25.9
--- NOTE | 2020-03-24 09:25 | WPDANESEPPF ---
Anes - Initial Pre Proc Eval Procedure: Operation Date: 03/24/20 14:00 Proposed Procedures p Cystoscopy with Litholapaxy, - Lilian Moreno MD s Possible Trans Urethral Resection Prostate - Lilian Moreno MD Date/Time: 03/24/20 09:25 Surgeon: Lilian Moreno MD Pre Op Diagnosis: calcium stone of bladder Patient Data Age: 85 Gender: M Height: 1.83 m Weight: 90.72 kg Allergies Allergy/AdvReac Type Severity Reaction Status Date / Time gadobenic acid Allergy Unknown Rash Verified 03/24/20 12:27 [From contrast - MRI] iohexol Allergy Unknown Rash Verified 03/24/20 12:27 [From contrast - CT, X-RAY] selenium Allergy Unknown rash Verified 03/24/20 12:27 Home Medications Medication Instructions Recorded Confirmed Type celecoxib 200 mg capsule 200 mg PO DAILY 10/03/19 03/17/20 History lisinopril 5 mg tablet 5 mg PO DAILY 10/03/19 03/17/20 History psyllium husk 0.52 gram capsule 1.04 gm PO BID cap 10/03/19 03/17/20 History simvastatin 20 mg tablet 20 mg PO DAILY 10/03/19 03/17/20 History glimepiride 2 mg tablet 2 mg PO QAM #90 tablet 12/19/19 03/17/20 Rx Azopt 1 drp OPHTHALMIC (EYE) BID 02/10/20 03/17/20 History Lumigan 1 drp OPHTHALMIC (EYE) HS 02/10/20 03/17/20 History Men's 50 Plus Multivitamin 1 tablet DAILY 02/10/20 03/17/20 History finasteride [Proscar] 5 mg PO QAM #30 tablet 02/12/20 03/17/20 Rx ferrous sulfate 325 mg PO BID #60 tablet 02/15/20 03/17/20 Rx metformin 500 mg tablet 500 mg PO BID #180 tablet 03/05/20 03/17/20 Rx ECG: Date of Service: 02/10/20 Procedure(s): CA 12 lead EKG Accession Number(s): [id number] cc: ~ Measurements Intervals [place] Rate: 112 P: 64 [place]: 145 QRS: 52 QRSD: 137 T: 31 QT: 349 QTc: 477 Interpretive Statements SINUS TACHYCARDIA RIGHT BUNDLE BRANCH BLOCK BASELINE WANDER- I, II, AVR, AVL, AVF ABNORMAL ECG Electronically Signed On 02-10-2020 8:49:14 CDT by Patrick Byrd D.O. 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 No tobacco use. No drug use. Full code. Nominates his to be the individual would make medical decisions for him if he is unable. He drinks 1-2 alcoholic drinks per week. Smoking packs per day: 0.5 Smoking cigarettes per day: 10.0 Years smoked: 5 Smoking pack-years: 2.50 Smoking status: Former smoker Tobacco type: cigarettes and pipe Alcohol intake: current Drinks per week: 2 Substance use: never Gender identity (if verbalized by the patient): Male Spiritual care concerns: Yes (Anabaptism) Anes - Eval Final PreProcedure Day of Procedure 03/24/20 09:25 Patient weight: overweight Heart: regular rate and rhythm Lungs: clear to auscultation and normal air movement Airway: Mallampati scale class II Neurological: alert
[2020-03-24] MEDS: LACTATED RINGERS 1,000 ML 30 ML IV CONT ×2 (12:35→17:11)
[2020-03-24 12:46] LABS: Glucose Point of Care 141 (65-105)
--- NOTE | 2020-03-24 13:31 | WPDHPUPDATE1 ---
History and Physical Update Update Date/Time: 03/24/20 13:31 History and Physical has been reviewed, including an updated exam of the patient. There are NO changes in the patient's condition. Risks, benefits, and alternatives have been discussed and questions answered. Patient agrees to proceed with procedure.
[2020-03-24] MEDS: ceFAZolin 2 GM/D5W 50 ML 2 GM/50 ML BAG IVPB (15:31)
[2020-03-24] MEDS: LIDOCAINE HCL 2% GEL UROJET 10 ML PKG MUCOUS MEM (15:50)
[2020-03-24 17:45] LABS: Glucose Point of Care 133 (65-105)
[2020-03-24 17:53] LABS: Hemoglobin 12.3 g/dL (14.0-18.0)
--- NOTE | 2020-03-24 17:55 | SUR.PHASEI ---
Dr Moreno updated family at 1724
--- NOTE | 2020-03-24 18:20 | ADMGEN ---
This patient, Harshal Castañeda, was admitted to 3 [facility] Surg Room 320-01. Patient/family oriented to hospital policies and general routines including ID bracelet, bed and alarms, visiting hours, pain management, procedures, bathroom and other care routines, personal items, smoking policy, room service/diet, and visiting hours. Valuables list has been completed. Information on how to activate the Rapid Response Team has been discussed. Patient/Family are encouraged to report perceived risks to care and to ask questions if they do not understand what they are told or what they should do.
[2020-03-24] MEDS: DEXTROSE 5%/LACTATED RINGERS 1,000 ML 125 ML IV CONT (18:38)
[2020-03-24] MEDS: MORPHINE SULFATE 2 MG/ML INJ IV PUSH ×2 (18:39→20:43)
[2020-03-24] MEDS: LATANOPROST 0.005% OP SOLN 2.5 ML BTL 1 DROP EACH EYE (20:43)
[2020-03-24] MEDS: BRINZOLAMIDE 1% OPHTH SUSP 10 ML 1 DROP EACH EYE (20:43)
--- NOTE | 2020-03-24 22:43 | OP_ITS ---
DATE OF PROCEDURE: 03/24/2020 PREOPERATIVE DIAGNOSES: 1. Benign prostatic hypertrophy with prostatic bleeding. 2. Bladder stones. 3. Gross hematuria. POSTOPERATIVE DIAGNOSES: 1. Benign prostatic hypertrophy with prostatic bleeding. 2. Bladder stones. 3. Gross hematuria. PROCEDURE PERFORMED: 1. Cystoscopy. 2. Clot evacuation. 3. Laser cystolitholapaxy. DESCRIPTION OF OPERATION: Informed consent was obtained. The patient was taken to the operating room, given preoperative IV antibiotics. He was induced with anesthesia, placed in dorsal lithotomy position. He was prepped and draped in normal sterile fashion. We inserted a 22-Ugandan cystoscope through the urethra into the bladder. There was significant prostatic regrowth from the patient's previous TURP as noted in his recent cystoscopic procedures last month. We entered the bladder. There was a clot within the bladder. We used a Brisa syringe and Ellik in order to remove the clot from the bladder for a total of approximately 300 cc of old clot. At this point, we had a better visualization, however, still difficult given significant prostatic regrowth and bladder trabeculation. I was able to identify stones in the bladder. There were multiple stones present. There appeared to be approximately a total stone burden of 4-5 cm with multiple stones measuring over a centimeter in size. We used the 270 nm laser fiber in order to fragment the stones into multiple pieces. We then used an Ellik evacuator in order to remove pieces. We took great care not to injure the bladder wall with lithotripsy. We then inspected after multiple rounds of lasering and fragment removal and there was no residual stones present in the bladder. We pulled back into the urethra and in the resection bed from the previous TURP. There were some stones that were grasped with a grasper and removed. We then reinserted the scope. There was no residual urethral or bladder stones noted. We inspected the ureteral orifices. They did not appear injured through the operations. At this point, the urine was blood tinged. We elected to place a 3-way catheter for overnight continuous bladder irrigation. A 22-Ugandan 3-way catheter was placed and run on a slow rate continuous bladder irrigation. The patient was then taken to the recovery room in stable condition. IV FLUIDS: Per anesthesia. COMPLICATIONS: None. ESTIMATED BLOOD LOSS: Approximately 300 mL. FOLLOWUP: The patient will remain on CBI overnight. We will reassess in the morning and consider a void trial tomorrow. D I MT: Clement
[2020-03-25 02:00] VITALS: BP 111/62; PULSE 104; RESP 20; TEMP 36.7; O2SAT 96
[2020-03-25] MEDS: MORPHINE SULFATE 2 MG/ML INJ IV PUSH (04:12)
[2020-03-25 06:00] VITALS: BP 108/50; PULSE 97; RESP 20; TEMP 36.4; O2SAT 96
[2020-03-25 07:32] LABS: Hemoglobin 12.2 g/dL (14.0-18.0)
[2020-03-25 07:50] LABS: Blood Urea Nitrogen 11 mg/dL (9-20); Calcium 8.8 mg/dL (8.4-10.2); Carbon Dioxide 27 mmol/L (22-30); Chloride 103 mmol/L (98-107); Estimated CRCL calculation 87 ml/min; Estimated Glomerular Filt Rate > 60; Glucose 165 mg/dL (75-110); Potassium 4.2 mmol/L (3.4-5.0); Sodium 136 mmol/L (137-145)
[2020-03-25] MEDS: GLIMEPIRIDE 2 MG TABLET PO (09:41)
[2020-03-25] MEDS: BRINZOLAMIDE 1% OPHTH SUSP 10 ML 1 DROP EACH EYE ×2 (09:41→21:15)
[2020-03-25] MEDS: DOCUSATE SODIUM 100 MG CAPSULE PO ×2 (09:41→18:30)
[2020-03-25] MEDS: FERROUS SULFATE 324 MG TABLET PO ×2 (09:42→18:30)
[2020-03-25] MEDS: FINASTERIDE 5 MG TABLET PO (09:42)
[2020-03-25] MEDS: PSYLLIUM SUGAR FREE POWDER PACKET 1 PACKET PO (09:42)
[2020-03-25] MEDS: THERAPEUTIC MULTIVITAMINS/MINERALS TAB (*BKC) 1 TABLET BY MOUTH (09:42)
--- NOTE | 2020-03-25 09:45 | WPDANESPN ---
Anes - Prog Note Post-Op Date/Time: 03/25/20 09:45 Cardiovascular status: normal Respiratory status: normal Airway patency: baseline Mental status: baseline Post-Op hydration status: normal Vital Signs: Last Vital Signs Temp 36.4 C 03/25/20 06:00 Pulse 97 03/25/20 06:00 Resp 20 03/25/20 06:00 BP 108/50 L 03/25/20 06:00 Pulse Ox 96 03/25/20 06:00 I/O: Intake & Output 03/24/20 03/25/20 03/25/20 23:59 07:59 15:59 Intake Total 200 2100 Output Total 2550 1000 Balance -2350 1100 Laboratory Tests 03/25/20 06:27 03/25/20 06:27 03/24/20 03/24/20 03/24/20 12:42 17:39 17:43 Hgb 12.3 L Hct 40.0 L Sodium Potassium Chloride Carbon Dioxide BUN Creatinine Estim Creat Clear Calc Estimated GFR Glucose POC Capillary Glucose 141 H 133 H Calcium Magnesium 03/24/20 03/25/20 03/25/20 21:32 06:27 06:27 Hgb 12.2 L Hct 39.0 L Sodium 136 L Potassium 4.2 Chloride 103 Carbon Dioxide 27 BUN 11 Creatinine 0.60 L Estim Creat Clear Calc 87 Estimated GFR > 60 Glucose 165 H POC Capillary Glucose Calcium 8.8 Magnesium Cancelled Post-procedural complaints: none Patient Feedback: Patient satisfied with anesthetic care.
--- NOTE | 2020-03-25 09:54 | WPDUROPN2 ---
Progress Note: A&P Assessment and Plan (1) BPH NOS w/o ur obs/LUTS: Code(s): N40.0 - Benign prostatic hyperplasia without lower urinary tract symptoms Status: Acute (2) Bladder stones: Code(s): N21.0 - Calculus in bladder Status: Acute (3) Gross hematuria: Code(s): R31.0 - Gross hematuria Status: Acute Assessment and Plan: Urine perfectly clear on slow CBI today. Stop CBI. He'll stay today in anticipation of voiding trial tomorrow morning. Subjective Subjective Date/Time Seen: 03/25/20 09:54 Hematuria due to BPH and bladder stones Comfortable, urine clear on slow CBI Review of Systems Cardiovascular: Cardiovascular: Denies chest pain, Denies lightheadedness, Denies palpitations and Denies dyspnea Respiratory: Respiratory: Denies dyspnea Gastrointestinal: Gastrointestinal: Denies diarrhea, Denies nausea and Denies vomiting Genitourinary: Genitourinary: Denies hematuria and Denies dysuria Endocrine: Endocrine: Denies palpitations Exam Const: General: no acute distress Resp: Effort & Inspection: normal respiratory effort GI: Inspection: non-distended GI Palp: No abdominal tenderness and No Guarding due to palpation present (GI) Auscultation: normal bowel sounds Objective Data Vital Signs Vital Signs: Vital Signs - 24 hr 03/24/20 13:00 03/24/20 17:11 03/24/20 17:25 Temperature 97.4 F L 97.5 F L Pulse Rate 89 89 90 Respiratory Rate 20 13 15 Blood Pressure 114/64 135/69 111/90 Pulse Oximetry 97 100 100 03/24/20 17:40 03/24/20 17:55 03/24/20 18:58 Temperature 97.4 F L 97.4 F L Pulse Rate 87 91 92 Respiratory Rate 18 14 18 Blood Pressure 122/74 121/71 128/58 L Pulse Oximetry 95 99 97 03/24/20 19:58 03/24/20 20:00 03/25/20 02:00 Temperature 98.1 F 97.8 F 98.1 F Pulse Rate 102 H 107 H 104 H Respiratory Rate 20 20 20 Blood Pressure 114/66 117/52 L 111/62 Pulse Oximetry 97 99 96 03/25/20 06:00 Temperature 97.6 F Pulse Rate 97 Respiratory Rate 20 Blood Pressure 108/50 L Pulse Oximetry 96 Intake/Output Intake/Output: Intake & Output 03/22/20 03/23/20 03/24/20 03/25/20 23:59 23:59 23:59 23:59 Intake Total 250 2100 Output Total 2550 1000 Balance -2300 1100 Meds/Results Medications: Active Medications Generic Name Dose Route Start Last Admin Trade Name Freq PRN Reason Stop Dose Admin Hydrocodone Bitart/Acetaminophen 1 tab 03/24/20 18:13 03/25/20 09:43 [place] 5-325 Mg PO 1 tab Q4H PRN Administration Pain Rated 1-6 Brinzolamide 1 drop 03/24/20 21:00 03/25/20 09:41 Azopt Ophth Jailyn EACH EYE 1 drop Q12HR [facility] Administration Docusate Sodium 100 mg 03/25/20 09:00 03/25/20 09:41 Colace Capsule PO 100 mg BID [facility] Administration Ferrous Sulfate 324 mg 03/25/20 09:00 03/25/20 09:42 Ferrous Sulfate PO 324 mg BID [facility] Administration Finasteride 5 mg 03/25/20 09:00 03/25/20 09:42 Proscar PO 5 mg QAM [facility] Administration Glimepiride 2 mg 03/25/20 08:00 03/25/20 09:41 Amaryl PO 2 mg DAILY@0800 [facility] Administration Latanoprost 1 drop 03/25/20 09:00 Xalatan EACH EYE QAM [facility] Lisinopril 5 mg 03/25/20 21:00 Prinivil PO HS [facility] Morphine Sulfate 2 mg 03/24/20 18:13 03/25/20 04:12 Morphine Sulfate Inj IV PUSH 2 mg Q2H PRN Administration Pain Rated 7-10 Multivitamins/Calcium 1 tablet 03/25/20 09:00 03/25/20 09:42 Therapeutic Multivitamins/Minerals BY MOUTH 1 tablet DAILY [facility] Administration Naloxone HCl 0.1 mg 03/24/20 18:13 Narcan IV PUSH Q2M PRN Opiate Reversal Ondansetron HCl 4 mg 03/24/20 18:13 Zofran Inj IV PUSH Q12H PRN Nausea And Vomiting Psyllium Hydrophilic Mucilloid 1 packet 03/25/20 21:00 Metamucil Sugar Free PO Q12HR [facility] Simvastatin 20 mg 03/25/20 21:00 Zocor PO HS [facility] Labs Labs: Laboratory Results - last 24 hr 03/24/20 03/24/20
[2020-03-25 10:00] VITALS: BP 109/53; PULSE 54; RESP 16; TEMP 36.8; O2SAT 96
[2020-03-25] MEDS: LATANOPROST 0.005% OP SOLN 2.5 ML BTL 1 DROP EACH EYE ×3 (13:06→13:07)
[2020-03-25 14:00] VITALS: BP 120/55; PULSE 107; RESP 16; TEMP 36.9; O2SAT 97
[2020-03-25] MEDS: lisinopriL 5 MG TABLET PO (21:14)
[2020-03-25] MEDS: SIMVASTATIN 20 MG TABLET PO (21:15)
[2020-03-25 22:00] VITALS: BP 114/61; PULSE 92; RESP 16; TEMP 37.4; O2SAT 99
[2020-03-26 06:00] VITALS: BP 107/59; PULSE 88; RESP 18; TEMP 36.3; O2SAT 97
--- NOTE | 2020-03-26 07:05 | WPDUROPN2 ---
Progress Note: A&P Assessment and Plan (1) Gross hematuria: Code(s): R31.0 - Gross hematuria Status: Acute (2) Bladder stones: Code(s): N21.0 - Calculus in bladder Status: Acute Assessment and Plan: Urine remains clear -> catheter removed for voiding trial. Home later today if voids OK. Subjective Subjective Date/Time Seen: 03/26/20 07:05 Comfortable, no complaints Urine remains clear Review of Systems Cardiovascular: Cardiovascular: Denies chest pain, Denies lightheadedness, Denies palpitations and Denies dyspnea Respiratory: Respiratory: Denies dyspnea Gastrointestinal: Gastrointestinal: Denies diarrhea, Denies nausea and Denies vomiting Genitourinary: Genitourinary: Denies hematuria and Denies dysuria Endocrine: Endocrine: Denies palpitations Exam Const: General: no acute distress Resp: Effort & Inspection: normal respiratory effort GI: Inspection: non-distended GI Palp: No abdominal tenderness and No Guarding due to palpation present (GI) Auscultation: normal bowel sounds Objective Data Vital Signs Vital Signs: Vital Signs - 24 hr 03/25/20 10:00 03/25/20 14:00 03/25/20 22:00 Temperature 98.3 F 98.4 F 99.4 F Pulse Rate 54 L 107 H 92 Respiratory Rate 16 16 16 Blood Pressure 109/53 L 120/55 L 114/61 Pulse Oximetry 96 97 99 03/26/20 06:00 Temperature 97.4 F L Pulse Rate 88 Respiratory Rate 18 Blood Pressure 107/59 L Pulse Oximetry 97 Intake/Output Intake/Output: Intake & Output 03/23/20 03/24/20 03/25/20 03/26/20 23:59 23:59 23:59 23:59 Intake Total 250 2700 550 Output Total 2550 1000 2350 Balance -2300 1700 -1800 Meds/Results Medications: Active Medications Generic Name Dose Route Start Last Admin Trade Name Freq PRN Reason Stop Dose Admin Hydrocodone Bitart/Acetaminophen 1 tab 03/24/20 18:13 03/25/20 21:12 [place] 5-325 Mg PO 1 tab Q4H PRN Administration Pain Rated 1-6 Brinzolamide 1 drop 03/24/20 21:00 03/25/20 21:15 Azopt Ophth Jailyn EACH EYE 1 drop Q12HR [facility] Administration Docusate Sodium 100 mg 03/25/20 09:00 03/25/20 18:30 Colace Capsule PO 100 mg BID [facility] Administration Ferrous Sulfate 324 mg 03/25/20 09:00 03/25/20 18:30 Ferrous Sulfate PO 324 mg BID [facility] Administration Finasteride 5 mg 03/25/20 09:00 03/25/20 09:42 Proscar PO 5 mg QAM [facility] Administration Glimepiride 2 mg 03/25/20 08:00 03/25/20 09:41 Amaryl PO 2 mg DAILY@0800 [facility] Administration Latanoprost 1 drop 03/25/20 09:00 03/25/20 13:07 Xalatan EACH EYE 1 drop QAM [facility] Administration Lisinopril 5 mg 03/25/20 21:00 03/25/20 21:14 Prinivil PO 5 mg HS [facility] Administration Morphine Sulfate 2 mg 03/24/20 18:13 03/25/20 04:12 Morphine Sulfate Inj IV PUSH 2 mg Q2H PRN Administration Pain Rated 7-10 Multivitamins/Calcium 1 tablet 03/25/20 09:00 03/25/20 09:42 Therapeutic Multivitamins/Minerals BY MOUTH 1 tablet DAILY [facility] Administration Naloxone HCl 0.1 mg 03/24/20 18:13 Narcan IV PUSH Q2M PRN Opiate Reversal Ondansetron HCl 4 mg 03/24/20 18:13 Zofran Inj IV PUSH Q12H PRN Nausea And Vomiting Simvastatin 20 mg 03/25/20 21:00 03/25/20 21:15 Zocor PO 20 mg HS [facility] Administration Labs Labs: Laboratory Results - last 24 hr 03/25/20 03/25/20 06:27 06:27 Hgb 12.2 L Hct 39.0 L Sodium 136 L Potassium 4.2 Chloride 103 Carbon Dioxide 27 BUN 11 Creatinine 0.60 L Estim Creat Clear Calc 87 Estimated GFR > 60 Glucose 165 H Calcium 8.8
[2020-03-26] MEDS: DOCUSATE SODIUM 100 MG CAPSULE PO (08:49)
[2020-03-26] MEDS: BRINZOLAMIDE 1% OPHTH SUSP 10 ML 1 DROP EACH EYE (08:49)
[2020-03-26] MEDS: polyethylene glycoL 3350 17 GM POWD.PACK 51 GM PO (08:49)
[2020-03-26] MEDS: FERROUS SULFATE 324 MG TABLET PO (08:55)
[2020-03-26] MEDS: FINASTERIDE 5 MG TABLET PO (08:55)
[2020-03-26] MEDS: GLIMEPIRIDE 2 MG TABLET PO (08:55)
[2020-03-26] MEDS: THERAPEUTIC MULTIVITAMINS/MINERALS TAB (*BKC) 1 TABLET BY MOUTH (08:56)
--- NOTE | 2020-03-30 16:59 | PM.DS ---
DS: Admitting Diagnosis Admitting Diagnosis Admitting Diagnosis: Calculus in bladder DS: Summary Time Spent with Patient Time attestation: Total time spent providing and/or coordinating discharge services: 15min Pt. with recurrent hematuria due to BPH and bladder stones. Admission on this occasion, for same reasons, and underwent stone extraction and clot evacuation. 36-hours of CBI and he then passed voiding trial well. Exam Const: General: no acute distress Resp: Effort & Inspection: normal respiratory effort GI: Inspection: non-distended GI Palp: No abdominal tenderness and No Guarding due to palpation present (GI) Auscultation: normal bowel sounds DS: Data Data Completed and Pending Completed studies during hospitalization: Pending at discharge 03/24/20 16:22 Surgical [PTH] Routine Discharge Plan Discharge Attending physician on discharge: Lilian Moreno Discharging Clinician: Carter Hernandez Patient Disposition: Home, Self-Care Activity: unlimited Diet: regular Discharge Instructions: 1) Activity: no driving or important decisions x24 hours. 2) Diet: resume your normal, pre-admission diet. 3) Follow-up: 2-3 weeks / call for appointment ([phone]). Patient Instructions: Antibiotic Form, Jonas Catheter Placement and Care (DC), Hematuria (GEN), Cystoscopy (DC) Stand Alone Forms: General Discharge Information Follow-up/Referrals: Lynnette Puentes MD [Primary Care Provider] - Discharge Medications: Continued lisinopril 5 mg tablet 5 mg PO DAILY RF: 0 simvastatin 20 mg tablet 20 mg PO DAILY RF: 0 celecoxib [Celebrex] 200 mg capsule 200 mg PO DAILY RF: 0 psyllium husk [Metamucil] 0.52 gram capsule 1.04 gm PO BID RF: 0 Men's 50 Plus Multivitamin 400-20-370 mcg Tablet 1 tablet DAILY RF: 0 Azopt 1 % Drops,Suspension 1 drp ophthalmic (eye) BID RF: 0 Lumigan 0.01 % Drops 1 drp ophthalmic (eye) HS RF: 0 finasteride [Proscar] 5 mg Tablet 5 mg PO QAM Qty: 30 RF: 3 ferrous sulfate 325 mg (65 mg iron) tablet 325 mg PO BID Qty: 60 RF: 0 glimepiride 2 mg tablet 2 mg PO QAM Qty: 90 RF: 1 metformin 500 mg tablet 500 mg PO BID Qty: 180 RF: 3 Date of admission: 03/25/20 14:28 Primary Care Provider: Lynnette Puentes Admitting Provider: Lilian Moreno Discharge Date/Time: 03/26/20 14:09 Attending physician on admission: Carter Hernandez
== END 2020-03-26 14:09 | disposition home or self-care (01) ==
PROVIDERS: Admitting Provider Urology; PCP Family Medicine; Visit Provider Urology
PROC: (CPT 52352; principal; 2020-03-24 14:00)
DX: N21.0 Calculus in bladder (principal); N32.89 Other specified disorders of bladder; N40.0 Benign prostatic hyperplasia without lower urinary tract symptoms; R31.0 Gross hematuria; E11.9 Type 2 diabetes mellitus without complications; I10 Essential (primary) hypertension; E78.2 Mixed hyperlipidemia; Z98.1 Arthrodesis status; Z87.891 Personal history of nicotine dependence
CPT/HCPCS: 52317; 36415; 80048; 82365; 85014; 85018; 88300; A9270; G0378; J0690; J1100; J2270; J2405; J2704; J3010; J7120; J7121

== ENCOUNTER 2022-03-24 00:09 | Emergency (ER) | payer MEDICARE, SELFPAY ==
--- NOTE | 2022-03-24 00:23 | ED.GENADULT ---
HPI - General Adult General Chief complaint: Urogenital-Male <Yris Kwon PA-C - Last Filed: 03/24/22 00:45> Stated complaint: hematuria, clots <Yris Kwon PA-C - Last Filed: 03/24/22 00:45> Time Seen by Provider: 03/24/22 00:15 <Yris Kwon PA-C - Last Filed: 03/24/22 00:45> History of Present Illness HPI narrative: 87-year-old male with a history of BPH s/p TURP 12 years ago here for evaluation of hematuria with clots today. Patient notes hematuria over the past week but tonight he passed 3 small blood clots. Upon chart review, patient has experienced hematuria with clots numerous times in the past and he was brought into hospital for cystoscopy and CBI. Cystoscopy revealed large hematoma and he had an arterial bleed requiring blood transfusion. Denies abdominal pain or urinary retention right now, but states in the past the clots have lead to acute urinary retention. Denies fevers, chills, loss of consciousness, weakness, dysuria. <Yris Kwon PA-C - Last Filed: 03/24/22 00:45> Related Data Home medications: Home Medications Medication Instructions Recorded Confirmed psyllium husk 0.52 gram capsule 1.04 gm PO BID 10/03/19 12/07/21 (Metamucil) bimatoprost 0.01 % eye drops 1 drp ophthalmic (eye) HS 02/10/20 12/07/21 (Lumigan) spptfszikuny-gly-envfu acid-vit 1 tablet DAILY 02/10/20 12/07/21 K-lycop 400 mcg-20 mcg-370 mcg tablet (Men's 50 Plus Multivitamin) <EVELIN Harris Last Filed: 03/24/22 00:45> Allergies/adverse reactions: Allergies Allergy/AdvReac Type Severity Reaction Status Date / Time gadobenic acid Allergy Unknown Rash Verified 12/07/21 10:19 [From contrast - MRI] iohexol Allergy Unknown Rash Verified 12/07/21 10:19 [From contrast - CT, X-RAY] selenium Allergy Unknown rash Verified 12/07/21 10:19 <Yris Kwon PA-C - Last Filed: 03/24/22 00:45> Review of Systems Review of Systems: Gen: Denies fevers or chills Eyes: Denies eye pain or visual change ENT: Denies congestion Respiratory: Denies shortness of breath or cough CV: Denies chest pain or palpitations GI: Denies abdominal pain nausea, emesis or diarrhea reports hematuria with clots Musculoskeletal: Denies back pain or muscle pain Neuro: Denies numbness, tingling, weakness or focal weakness Skin: Denies rash Except as documented, all other systems reviewed and negative <Yris Kwon PA-C - Last Filed: 03/24/22 00:45> [facility] Past Medical History Medical History: Medical History Arthritis BPH (benign prostatic hyperplasia) Cirrhosis Degeneration of cervical intervertebral disc Diabetes Diverticulosis Noted by Colonoscopy; polypectomy 2012, 2019 Glaucoma History of colon polyps HTN (hypertension) Hyperlipidemia Mixed hyperlipidemia 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 Type 2 diabetes mellitus without complications <Yris Kwon PA-C - Last Filed: 03/24/22 00:45> Surgical History Surgical History: Surgical History H/O arthroscopy of knee H/O hernia repair H/O transurethral resection of prostate History of fusion of cervical spine C5-7 08/14/12 History of hip replacement <Yris Kwon PA-C - Last Filed: 03/24/22 00:45> Family History Family History: Family History Father Cerebrovascular accident Sibling Carcinoma of colon Mother Family history of malignant neoplasm of breast in first degree relative Breast cancer Colon cancer <Yris Kwon PA-C - Last Filed: 03/24/22 00:45> Social History Social History: Social History Social History: Lives at home with his . No tobacco
[2022-03-24 00:56] VITALS: BP 117/72; PULSE 97; RESP 20; TEMP 36.8; O2SAT 95
[2022-03-24 01:00] LABS: Basophils Percent Auto 0.6 % (0.2-1.2); Eosinophils Absolute Auto 0.2 K/mm3 (0-0.3); Hematocrit 46.7 % (42.0-52.0); Immature Granulocyte Absolute 0.02 K/mm3 (0.00-0.031); Immature Granulocyte Percent A 0.3 % (0-0.5); Lymphocytes Percent Auto 36.7 % (18.3-44.2); Mean Corpuscular HGB Conc 34.3 g/dl (32-36); Mean Corpuscular Hemoglobin 31.3 pg (26-34); Mean Corpuscular Volume 91.2 fl (80-100); Monocytes Absolute Auto 0.7 K/mm3 (0.1-0.6); Monocytes Percent Auto 9.3 % (2.6-8.5); Neutrophils Absolute Auto 3.6 K/mm3 (1.3-6.7); Neutrophils Percent Auto 50.1 % (45.5-73.1); Platelet Count Result 198 k/mm3 (150-375); Red Blood Count 5.12 M/mm3 (4.6-6.20); White Blood Count 7.1 K/mm3 (4.5-10.0)
[2022-03-24 01:10] LABS: Alanine Aminotransferase 33 U/L (6-50); Albumin Level 4.6 g/dL (3.5-5.1); Alkaline Phosphatase 48 U/L (38-126); Anion Gap 9 mmol/L (8-16); Aspartate Amino Transferase 35 U/L (17-59); Bilirubin,Total 0.4 mg/dL (0.2-1.3); Blood Urea Nitrogen 23 mg/dL (9-20); Calcium 9.9 mg/dL (8.4-10.2); Carbon Dioxide 25 mmol/L (22-30); Chloride 102 mmol/L (98-107); Estimated CRCL calculation 80 ml/min; Estimated Glomerular Filt Rate > 60; Glucose 145 mg/dL (65-110); Potassium 4.4 mmol/L (3.4-5.0); Sodium 136 mmol/L (137-145)
[2022-03-24 01:23] LABS: Add Urine Microscopic? YES; Appearance Urine Clear (Clear); Bilirubin Urine 3+ (Negative); Blood Urine 3+ (Negative); Color Urine Other (Yellow); Glucose Urine UA Trace mg/dL (Negative); Ketones Urine 1+ mg/dL (Negative); Leukocyte Esterase Ur 3+ LEU/UL (Negative); Nitrate Urine Negative (Negative); Protein Urine 3+ mg/dL (Negative); Specific Grav Ur <= 1.005 (1.001-1.035); pH Urine 8.5 (5.0-9.0)
[2022-03-24 01:33] LABS: Bacteria Urine Trace /hpf; RBC Urine >75 /hpf (0-2)
[2022-03-24 06:42] VITALS: BP 116/66; PULSE 96; RESP 20; O2SAT 95
== END 2022-03-24 01:49 | disposition home or self-care (01) ==
PROVIDERS: Physician Assistant; Emergency Provider Emergency Medicine; PCP Urology
DX: R31.9 Hematuria, unspecified (principal); N40.0 Benign prostatic hyperplasia without lower urinary tract symptoms; K74.60 Unspecified cirrhosis of liver; E11.9 Type 2 diabetes mellitus without complications; H40.9 Unspecified glaucoma; E78.2 Mixed hyperlipidemia; Z85.828 Personal history of other malignant neoplasm of skin; Z90.79 Acquired absence of other genital organ(s); Z98.1 Arthrodesis status; Z96.649 Presence of unspecified artificial hip joint; Z87.891 Personal history of nicotine dependence; Z79.84 Long term (current) use of oral hypoglycemic drugs
CPT/HCPCS: 36415; 80053; 81001; 85025; 87086; 87088; 99283

== ENCOUNTER → 2022-05-11 09:26 | Outpatient (CLI) | payer MEDICARE, SELFPAY ==
--- NOTE | ~2022-05-11 | XR_ITS ---
XR chest 2V DATE: 05/11/2022 09:37 INDICATION: Chest pain. Upper right chest tightness. TECHNIQUE: 2 views COMPARISON: 06/23/2011 PA and lateral chest FINDINGS: Status post lower anterior cervical spine surgical fusion. Normal heart size. Mild aortic unfolding. No pulmonary infiltrate or consolidation, pleural effusion or pulmonary vascular congestion or pneumothorax is detected. Osteopenia. Levoscoliosis and degenerative spurring of the thoracic spine. IMPRESSION: No active cardiopulmonary disease Reviewed, dictated and finalized at location B.
== END ==
PROVIDERS: PCP Physician Assistant; Visit Provider Physician Assistant
DX: R07.9 Chest pain, unspecified (principal); I10 Essential (primary) hypertension
CPT/HCPCS: 71046

== ENCOUNTER 2022-06-16 08:36 | Outpatient (CLI) | payer MEDICARE, SELFPAY ==
--- NOTE | 2022-06-16 08:54 | EST_ITS ---
Patient Info Name: Harshal Castañeda Age: 87 years : 1935 Gender: Male Ht: 71 in Wt: 190 lbs BSA: 2.09 m2 HR: 65 bpm BP: 164 / 84 mmHg Heart Rhythm: Sinus Rhythm Technical Quality: Fair Exam Date: 06/16/2022 9:50 AM Exam Location: [facility] Pulmonary Patient Status: Outpatient Admit Date: 06/16/2022 Staff Ordering Physician: Rebel Cabral PA-C Associate Professor Of Archaeology: Kelley Sequeira RDCS Attending Provider: Rebel aCbral PA-C Referring Physician: Marianna SORTO; Exercise Technologist: Emani Perez CT Exercise Physician: Patrick Byrd DO Exam Type: CA stress echo Study Info Indications R07.9 - Chest pain, unspecified Treadmill exercise stress echocardiogram is performed. Summary 1. 1. Negative Jamir exercise stress test for ischemic ST changes by ECG criteria. 2. 2. Poor functional capacity, achieving 4 METs of workload. 3. 3. Appropriate HR response to exercise. 4. 4. Appropriate HR recovery at 1 minute post exercise. 5. 5. Negative stress echocardiogram fo rischemia by wall motion analysis. 6. 6. Patient informed of the above results. Stress Echo Findings Left Ventricle Appropriate increase in LV endocardial thickening with systole. Appropriate augmentation of contractility with systole. No wall motion abnormality. Left Ventricle Normal LV systolic function, no wall motion abnormality. Protocol: Jamir Stress ECG Details Stage: REST Duration (min): 0 min : 55 sec Speed (mph): 0.0 Grade (%): 0 HR (bpm): 67 SBP (mmHg): 123 DBP (mmHg): 71 METS: --- Stage: REST Duration (min): 26 min : 7 sec Speed (mph): 0.0 Grade (%): 0 HR (bpm): 70 SBP (mmHg): 123 DBP (mmHg): 71 METS: --- Stage: STAGE 1 Duration (min): 1 min : 0 sec Speed (mph): 1.7 Grade (%): 10 HR (bpm): 109 SBP (mmHg): 123 DBP (mmHg): 71 METS: --- Stage: STAGE 1 Duration (min): 1 min : 42 sec Speed (mph): 0.0 Grade (%): 0 HR (bpm): 128 SBP (mmHg): 123 DBP (mmHg): 71 METS: --- Stage: RECOVERY Duration (min): 0 min : 17 sec Speed (mph): 0.0 Grade (%): 0 HR (bpm): 130 SBP (mmHg): 123 DBP (mmHg): 71 METS: --- Stage: RECOVERY Duration (min): 1 min : 17 sec Speed (mph): 0.0 Grade (%): 0 HR (bpm): 107 SBP (mmHg): 156 DBP (mmHg): 64 METS: --- Stage: RECOVERY Duration (min): 2 min : 17 sec Speed (mph): 0.0 Grade (%): 0 HR (bpm): 93 SBP (mmHg): 156 DBP (mmHg): 64 METS: --- Stage: RECOVERY Duration (min): 3 min : 1 sec Speed (mph): 0.0 Grade (%): 0 HR (bpm): 90 SBP (mmHg): 162 DBP (mmHg): 74 METS: --- Rest HR: 70 bpm Peak HR: 130 bpm Rest Sys BP: 123 mmHg Peak Sys BP: 162 mmHg Max Pred HR: 135 bpm % Max Pred HR: 96 % Target HR: 115 bpm Max RPP: 21,060 bpm*mmHg Barreto Score: -3 Termination Reason: Reached target heart rate or workload Cardiac Symptoms: Shortness of breath, Knee pains Max ST Seg Deviation: 1.00 mm Total Time: 1 min : 42 sec Rest Jang BP: 71 mmHg Peak Jang BP:
== END 2022-06-16 08:37 | disposition home or self-care (01) ==
LOC: ANHCARD 08:38
PROVIDERS: PCP Physician Assistant; Visit Provider Physician Assistant
DX: R07.9 Chest pain, unspecified (principal); I10 Essential (primary) hypertension
CPT/HCPCS: 93351

== ENCOUNTER 2022-09-18 09:40 | Inpatient (IN) | payer MEDICARE, SELFPAY ==
[2022-09-18] VITALS (10 sets, daily range): BP systolic 116–161; BP diastolic 61–78; PULSE 90–120; RESP 16–20; TEMP 36.1–36.4; O2SAT 98–100; BMI 27.3
--- NOTE | ~2022-09-18 | CT_ITS ---
EXAMINATION: CT abdomen pelvis wo con DATE: 09/20/2022 15:29 INDICATION: Liver mass TECHNIQUE: Computed tomography (CT) of the abdomen and pelvis was performed without intravenous contr ast. The dose-length product (DLP) was 546.45 mGy-cm. Automated exposure control and iterative recons truction technique were employed. COMPARISON: 02/16/2020; ultrasound, 09/19/2022 FINDINGS: Minimal dependent atelectasis is present in the lung bases. The heart size is normal. Stone s are present in the nondistended gallbladder. The liver is unremarkable. Punctate calcifications in an otherwise normal spleen likely represent healed granulomatous disease. The adrenal glands are norm al. There is a possible mass in the region of the pancreatic head and second portion of the duodenum, incompletely characterized in the absence of intravenous contrast. The adrenal glands are normal. Th e right kidney is unremarkable. There is ar 2.8 cm cyst of the left kidney. No pathologically enlarge d abdominal or pelvic lymph nodes are identified. There is no free intraperitoneal gas or evidence of bowel obstruction. Colonic diverticulosis is present without evidence of diverticulitis. There is mo derate lumbar spondylosis. IMPRESSION: 1. 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 Further evaluation by MRI without and with contra st is recommended. 2. Cholelithiasis without evidence of cholecystitis. Reviewed, dictated and finalized at location [facility] IMPRESSION: 1. 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 Further evaluation by MRI w ithout and with contrast is recommended. 2. Cholelithiasis without evidence of cholecystitis.
--- NOTE | ~2022-09-18 | US_ITS ---
Limited Abdominal Sonogram: Real-time sonographic imaging of the right upper quadrant was performed. Clinical History: Cirrhosis, GI bleed Findings: The liver appears echogenic, with no evidence of solid mass lesion or bile duct dilatation . There is a probable 1 cm cyst in the right hepatic lobe. Main portal vein demonstrates normal direc tion of flow. The gallbladder is well distended, and contains probable tiny layering gallstones. The common bile duct measures 4 mm. The visualized pancreas, aorta, and IVC are unremarkable. Questionab le heterogeneous lesion versus bowel loop superior to the pancreatic head. Impression: Diffuse fatty infiltration of the liver. Probable bowel loop versus less likely heterogeneous mass superior to the pancreatic head. Consider C T to more definitively exclude mass lesion, as clinically indicated. Probable tiny gallstones. Reviewed, dictated and finalized at [facility]. [employer] [employer] [facility] Impression: Diffuse fatty infiltration of the liver. Probable bowel loop versus less likely heterogeneous mass superior to the pancr eatic head. Consider CT to more definitively exclude mass lesion, as clinically indicated. Probable tiny gallstones.
--- NOTE | 2022-09-18 10:00 | ED.GIBLEED ---
HPI - GI Bleed General Chief complaint: GI Bleed <Yris Kwon PA-C - Last Filed: 09/18/22 16:27> Stated complaint: rectal bleeding <EVELIN Harris Last Filed: 09/18/22 16:27> Time Seen by Provider: 09/18/22 09:48 <EVELIN Harris Last Filed: 09/18/22 16:27> History of Present Illness HPI Narrative: Patient is an 87-year-old male here for evaluation of vomiting blood and having bloody stools for the past day. Patient states he had about 4 episodes of vomiting bright red blood yesterday, and several episodes of having bright red blood in his stools. He also notes abdominal pain in the epigastric region. Patient denies history of previous similar episodes. Denies weakness, syncope, fatigue. he follows with a GI specialist at [place] and has yearly colonoscopies due to strong family history of colon cancer. No frequent NSAID or alcohol use. He is not on a blood thinner. <EVELIN Harris Last Filed: 09/18/22 16:27> Related Data Home medications: Home Medications Medication Instructions Recorded Confirmed bimatoprost 0.01 % eye drops 1 drp ophthalmic (eye) HS 02/10/20 09/18/22 (Lumigan) celecoxib 200 mg capsule 200 mg PO BID 09/18/22 09/18/22 glimepiride 2 mg tablet 2 mg PO DAILY 09/18/22 09/18/22 lisinopril 5 mg tablet 5 mg PO DAILY 09/18/22 09/18/22 metformin 500 mg tablet 500 mg PO BID 09/18/22 09/18/22 omeprazole 20 mg capsule,delayed 20 mg PO DAILY 09/18/22 09/18/22 release simvastatin 20 mg tablet 20 mg PO DAILY 09/18/22 09/18/22 <EVELIN Harris Last Filed: 09/18/22 16:27> Allergies/Adverse reactions: Allergies Allergy/AdvReac Type Severity Reaction Status Date / Time gadobenic acid Allergy Unknown Rash Verified 09/11/22 08:32 [From contrast - MRI] iohexol Allergy Unknown Rash Verified 09/11/22 08:32 [From contrast - CT, X-RAY] selenium Allergy Unknown rash Verified 09/11/22 08:32 <Yris Kwon PA-C - Last Filed: 09/18/22 16:27> Review of Systems Review of Systems: Gen: Denies fevers or chills Eyes: Denies eye pain or visual change ENT: Denies congestion Respiratory: Denies shortness of breath or cough CV: Denies chest pain or palpitations GI: Denies abdominal pain nausea, emesis or diarrhea reports vomiting blood and blood in his stools Musculoskeletal: Denies back pain or muscle pain Neuro: Denies numbness, tingling, weakness or focal weakness Skin: Denies rash Except as documented, all other systems reviewed and negative <Yris Kwon PA-C - Last Filed: 09/18/22 16:27> [facility] Past Medical History Medical History: Medical History Arthritis BPH (benign prostatic hyperplasia) Cirrhosis Degeneration of cervical intervertebral disc Diabetes Diverticulosis Noted by Colonoscopy; polypectomy 2012, 2019 Glaucoma History of colon polyps HTN (hypertension) Hyperlipidemia Mixed hyperlipidemia 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 Type 2 diabetes mellitus without complications <Yris Kwon PA-C - Last Filed: 09/18/22 16:27> Surgical History Surgical History: Surgical History H/O arthroscopy of knee H/O hernia repair H/O transurethral resection of prostate History of fusion of cervical spine C5-7 08/14/12 History of hip replacement <Yris Kwon PA-C - Last Filed: 09/18/22 16:27> Family History Family History: Family History Father Cerebrovascular accident Sibling Carcinoma of colon Mother Family history of malignant neoplasm of breast in first degree relative Breast cancer Colon cancer <Yris Kwon PA-C - Last Filed: 09/18/22 16:27> Social History Social History: Social History (Updated
[2022-09-18] MEDS: SODIUM CHLORIDE 0.9% IV 1,000 ML 999 ML IV CONT ×2 (10:03→10:47)
[2022-09-18 10:08] LABS: Basophils Percent Auto 0.2 % (0.2-1.2); Eosinophils Percent Auto 0.2 % (0-4.4); Hematocrit 41.1 % (42.0-52.0); Hemoglobin 13.5 g/dL (14.0-18.0); Immature Granulocyte Absolute 0.06 K/mm3 (0.00-0.031); Immature Granulocyte Percent A 0.5 % (0-0.5); Lymphocytes Absolute Auto 2.02 K/mm3 (0.9-3.2); Lymphocytes Percent Auto 18.4 % (18.3-44.2); Mean Corpuscular HGB Conc 32.8 g/dl (32-36); Mean Corpuscular Hemoglobin 30.5 pg (26-34); Mean Corpuscular Volume 92.8 fl (80-100); Mean Platelet Volume 10.8 fl (7.4-10.4); Monocytes Absolute Auto 0.7 K/mm3 (0.1-0.6); Monocytes Percent Auto 6.7 % (2.6-8.5); Neutrophils Absolute Auto 8.1 K/mm3 (1.3-6.7); Platelet Count Result 215 k/mm3 (150-375); Red Blood Count 4.43 M/mm3 (4.6-6.20)
[2022-09-18] MEDS: PANTOPRAZOLE SODIUM IV 40 MG VIAL 80 MG IV PUSH (10:08)
[2022-09-18 10:18] LABS: Alanine Aminotransferase 27 U/L (6-50); Albumin Level 4.4 g/dL (3.5-5.1); Alkaline Phosphatase 33 U/L (38-126); Anion Gap 6 mmol/L (8-16); Aspartate Amino Transferase 26 U/L (17-59); Bilirubin,Total 0.4 mg/dL (0.2-1.3); Blood Urea Nitrogen 37 mg/dL (9-20); Calcium 9.9 mg/dL (8.4-10.2); Carbon Dioxide 25 mmol/L (22-30); Chloride 103 mmol/L (98-107); Estimated CRCL calculation 81 ml/min; Estimated Glomerular Filt Rate > 60; Glucose 255 mg/dL (65-110); INR 1.1; Lipase 95 U/L (23-300); Potassium 4.7 mmol/L (3.4-5.0); Prothrombin Time 13.8 Seconds (11.1-14.7); Sodium 134 mmol/L (137-145)
[2022-09-18 10:19] LABS: Partial Thromboplastin Time 24.8 SECONDS (22.3-36.8)
[2022-09-18 11:32] LABS: Influenza A QL RT-PCR Negative (Negative); Influenza B QL RT-PCR Negative (Negative); SARS-CoV-2 RNA PCR Negative
[2022-09-18] MEDS: SODIUM CHLORIDE 0.9% IV 1,000 ML 150 ML IV CONT (13:45)
--- NOTE | 2022-09-18 15:00 | PM.IMHP ---
H&P: HPI History of Present Illness Date/Time: 09/18/22 15:00 Chief Complaint: Blood and vomit in stool. Narrative: This is a pleasant 87-year-old male with history of diverticulosis, colon polyps, cirrhosis noted on prior imaging but unbeknownst to the patient, hypertension, hyperlipidemia, diabetes, and benign prostatic hyperplasia who presented to the ED from home for evaluation of blood in vomit and stool. Last evening he developed diffuse abdominal discomfort about an hour after eating. He describes a tight and occasionally burning sensation in the epigastric region but also some cramping pain throughout the lower abdomen. He has not noticed any significant aggravating or alleviating factors. Associated symptoms include nausea and he reports having an episode of emesis admixed with bright red blood at about 20:00. Shortly thereafter he passed a loose stool which was also admixed with bright red blood. He was able to go to sleep but sometime in the middle the night he woke up again with nausea and he had several other similar episodes which has left him quite weak. He has had similar discomfort, mainly in the lower mid and right chest region, for several months and he has been taking Tums which seems to help his symptoms though he goes on to say that he does not feel his symptoms are related to indigestion. He was previously evaluated by his doctor and in fact had a full cardiac workup which was reportedly unremarkable. He takes Celebrex daily avoids other NSAIDs and he denies significant caffeine and alcohol intake. He has no known history of esophagitis, gastritis, ulcers, or varices. He has not had fever, chills, or sweats. No recent travel, antibiotic use, or sick contacts. Review of Systems Review of Systems: Twelve systems were reviewed and are negative except for as per HPI. 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 Type 2 diabetes mellitus without complications Surgical History Surgical History (Updated 09/18/22 @ 20:43 by Diane Jung PA-C) H/O arthroscopy of knee H/O hernia repair H/O transurethral resection of prostate History of fusion of cervical spine (~08/14/12) C5-7 History of hip replacement Family History Family History Father Cerebrovascular accident Sibling Carcinoma of colon Mother Family history of malignant neoplasm of breast in first degree relative Breast cancer Colon cancer Social History Social History (Updated 09/18/22 @ 20:45 by Diane Jung PA-C) Social History: Surrogate medical decision maker: Shayna Castañeda, spouse. Code status: Full code. Smoking packs per day: 2 Smoking cigarettes per day: 40.0 Years smoked: 5 Smoking pack-years: 10.00 Smoking status: Former smoker Tobacco type: cigarettes Smoking end date: 03/24/20 Alcohol intake: current Drinks per week: 1 Substance use: never Lack of Transportation: No Lack of Food: Never True Current Housing: I Have Housing Concerned About Future Housing: Decline to Answer Difficulty Paying Gas/Electric Bills: Decline to Answer Difficulty Paying for Meds: Decline to Answer Currently Unemployed: Decline to Answer Education: Don't Know Difficulty w/ Childcare or Family Care: Decline to Answer Additional living arrangements comments: Lives with spouse in [place]. Additional occupation/education comments: [employer], continues to work 5 days a week. Spiritual care concerns: No Meds
[2022-09-18 16:00] LABS: CRP 0.8 mg/dL (<1.0)
[2022-09-18 16:03] LABS: Hemoglobin A1C 7.4 % (<5.7)
[2022-09-18 16:34] LABS: Hepatitis B Surface Antigen Negative (Negative)
[2022-09-18 16:40] LABS: HAV RESULT Negative (Negative); Hepatitis B Core IgM Result Negative (Negative)
--- NOTE | 2022-09-18 16:49 | ADMGEN ---
This patient, Harshal Castañeda, was admitted to [facility] Surg Room 322-01. Patient/family oriented to hospital policies and general routines including ID bracelet, bed and alarms, visiting hours, pain management, procedures, bathroom and other care routines, personal items, smoking policy, room service/diet, and visiting hours. Information on how to activate the Rapid Response Team has been discussed. Patient/Family are encouraged to report perceived risks to care and to ask questions if they do not understand what they are told or what they should do.
[2022-09-18 16:51] LABS: Hepatitis C Virus Antibody Negative (Negative)
[2022-09-18 17:19] LABS: Hemoglobin 11.1 g/dL (14.0-18.0)
[2022-09-18 18:58] LABS: Glucose Point of Care 142 mg/dl (65-105)
[2022-09-18 22:01] LABS: Hematocrit 35.5 % (42.0-52.0); Hemoglobin 11.5 g/dL (14.0-18.0)
[2022-09-18] MEDS: LATANOPROST 0.005% OP SOLN 2.5 ML BTL 1 DROP EACH EYE (22:05)
[2022-09-18] MEDS: cefTRIAXone 2 GM in SODIUM CHLORIDE 0.9% IV 100 ML 200 ML IVPB (22:05)
[2022-09-18 23:23] LABS: Glucose Point of Care 129 mg/dl (65-105)
[2022-09-19] VITALS (15 sets, daily range): BP systolic 97–135; BP diastolic 56–75; PULSE 82–133; RESP 18–20; TEMP 36.1–36.5; O2SAT 93–100
[2022-09-19 06:06] LABS: Glucose Point of Care 207 mg/dl (65-105)
[2022-09-19] MEDS: INSULIN ASPART (*BKC) 100 UNITS/ML SUB-Q (06:07)
[2022-09-19 07:00] LABS: Basophils Percent Auto 0.3 % (0.2-1.2); Eosinophils Absolute Auto 0.2 K/mm3 (0-0.3); Eosinophils Percent Auto 2.1 % (0-4.4); Hematocrit 34.7 % (42.0-52.0); Hemoglobin 11.2 g/dL (14.0-18.0); Immature Granulocyte Absolute 0.03 K/mm3 (0.00-0.031); Immature Granulocyte Percent A 0.3 % (0-0.5); Lymphocytes Percent Auto 13.8 % (18.3-44.2); Mean Corpuscular HGB Conc 32.3 g/dl (32-36); Mean Corpuscular Hemoglobin 31.2 pg (26-34); Mean Corpuscular Volume 96.7 fl (80-100); Monocytes Absolute Auto 0.5 K/mm3 (0.1-0.6); Monocytes Percent Auto 5.6 % (2.6-8.5); Neutrophils Absolute Auto 6.8 K/mm3 (1.3-6.7); Neutrophils Percent Auto 77.9 % (45.5-73.1); Platelet Count Result 156 k/mm3 (150-375); Red Blood Count 3.59 M/mm3 (4.6-6.20); Red Cell Distribution Width 13.2 % (11.5-14.5); White Blood Count 8.7 K/mm3 (4.5-10.0)
[2022-09-19 07:15] LABS: Alanine Aminotransferase 24 U/L (6-50); Albumin Level 3.7 g/dL (3.5-5.1); Alkaline Phosphatase 35 U/L (38-126); Anion Gap 5 mmol/L (8-16); Aspartate Amino Transferase 29 U/L (17-59); Bilirubin,Total 0.4 mg/dL (0.2-1.3); Blood Urea Nitrogen 18 mg/dL (9-20); Calcium 8.5 mg/dL (8.4-10.2); Carbon Dioxide 25 mmol/L (22-30); Chloride 106 mmol/L (98-107); Estimated CRCL calculation 71 ml/min; Estimated Glomerular Filt Rate > 60; Glucose 221 mg/dL (65-110); Magnesium 1.9 mg/dL (1.6-2.3); Potassium 4.3 mmol/L (3.4-5.0); Sodium 136 mmol/L (137-145)
[2022-09-19] MEDS: MICONAZOLE NITRATE 2% CREAM 30 GM TUBE 1 APPLIC TOPICAL ×2 (09:00→17:00)
--- NOTE | 2022-09-19 09:32 | PC.NURSE ---
To GI Lab per temo, IV #20 right wrist saline locked. Report given to Rosemary.
[2022-09-19 09:53] LABS: Hematocrit 38.2 % (42.0-52.0); Hemoglobin 12.1 g/dL (14.0-18.0)
--- NOTE | 2022-09-19 09:54 | WPDANESEPPF ---
Anes - Initial Pre Proc Eval Procedure: Operation Date: 09/19/22 15:00 Proposed Procedures p Esophagogastroduodenoscopy - Leander Garcia MD Date/Time: 09/19/22 09:54 Surgeon: Rickey Valdivia MD Pre Op Diagnosis: GI Bleed Patient Data Age: 87 Gender: M Height: 1.8 m Weight: 81.1 kg Last Vital Signs Temp 36.2 C L 09/19/22 05:49 Pulse 94 09/19/22 08:00 Resp 18 09/19/22 05:49 BP 97/69 L 09/19/22 05:49 Pulse Ox 93 09/19/22 05:49 O2 Del Method Room Air 09/18/22 20:00 Allergies Allergy/AdvReac Type Severity Reaction Status Date / Time gadobenic acid Allergy Unknown Rash Verified 09/11/22 08:32 [From contrast - MRI] iohexol Allergy Unknown Rash Verified 09/11/22 08:32 [From contrast - CT, X-RAY] selenium Allergy Unknown rash Verified 09/11/22 08:32 Home Medications Medication Instructions Recorded Confirmed Type bimatoprost 0.01 % eye drops 1 drp ophthalmic (eye) HS 02/10/20 09/18/22 History (Lumigan) finasteride 5 mg tablet (Proscar) 5 mg PO QAM #90 tabs 05/11/22 09/18/22 Rx nystatin 100,000 unit/gram topical 1 applic topical BID #30 grams 09/11/22 09/18/22 Rx cream celecoxib 200 mg capsule 200 mg PO BID 09/18/22 09/18/22 History glimepiride 2 mg tablet 2 mg PO DAILY 09/18/22 09/18/22 History lisinopril 5 mg tablet 5 mg PO DAILY 09/18/22 09/18/22 History metformin 500 mg tablet 500 mg PO BID 09/18/22 09/18/22 History omeprazole 20 mg capsule,delayed 20 mg PO DAILY 09/18/22 09/18/22 History release simvastatin 20 mg tablet 20 mg PO DAILY 09/18/22 09/18/22 History Laboratory Tests 09/18/22 09/18/22 09/18/22 10:02 10:02 10:02 WBC 11.0 K/mm3 H K/mm3 (4.5-10.0) RBC 4.43 M/mm3 L M/mm3 (4.6-6.20) Hgb 13.5 g/dL L g/dL (14.0-18.0) Hct 41.1 % L % (42.0-52.0) MCV 92.8 fl fl (80-100) MCH 30.5 pg pg (26-34) MCHC 32.8 g/dl g/dl (32-36) RDW 13.0 % % (11.5-14.5) Plt Count 215 k/mm3 k/mm3 (150-375) MPV 10.8 fl H fl (7.4-10.4) Immature Gran % (Auto) 0.5 % % (0-0.5) Neut % (Auto) 74.0 % H % (45.5-73.1) Lymph % (Auto) 18.4 % % (18.3-44.2) [place] % (Auto) 6.7 % % (2.6-8.5) Eos % (Auto) 0.2 % % (0-4.4) Baso % (Auto) 0.2 % % (0.2-1.2) Lymph # (Auto) 2.02 K/mm3 K/mm3 (0.9-3.2) [place] # (Auto) 0.7 K/mm3 H K/mm3 (0.1-0.6) Eos # (Auto) 0.0 K/mm3 K/mm3 (0-0.3) Baso # (Auto) 0.0 K/mm3 K/mm3 (0.0-0.1) Abs Immat Gran (auto) 0.06 K/mm3 H K/mm3 (0.00-0.031) Absolute Neuts (auto) 8.1 K/mm3 H K/mm3 (1.3-6.7) Absolute Nucleated RBC 0.0 K/mm3 K/mm3 (0.0-0.012) Nucleated RBC % 0.0 % % (0.0-0.2) PT 13.8 Seconds Seconds (11.1-14.7) INR 1.1 APTT 24.8 SECONDS SECONDS (22.3-36.8) Sodium 134 mmol/L L mmol/L (137-145) Potassium 4.7 mmol/L mmol/L (3.4-5.0) Chloride 103 mmol/L mmol/L (98-107) Carbon Dioxide 25 mmol/L mmol/L (22-30) Anion Gap 6 mmol/L L mmol/L (8-16) BUN 37 mg/dL H D mg/dL (9-20) Creatinine 0.60 mg/dL L mg/dL (0.7-1.3) Estim Creat Clear Calc 81 ml/min ml/min Estimated GFR > 60 (59 - ) Glucose 255 mg/dL H mg/dL (65-110) POC Capillary Glucose Hemoglobin A1c Calcium 9.9 mg/dL mg/dL (8.4-10.2) Magnesium Total Bilirubin 0.4 mg/dL mg/dL (0.2-1.3) AST 26 U/L U/L (17-59) ALT 27 U/L U/L (6-50) Alkaline Phosphatase 33 U/L L U/L (38-126) C-Reactive Protein Total Protein 7.0 g/dL g/dL (6.3-8.2) Albumin 4.4 g/dL g/dL (3.5-5.1) Lipase 95 U/L U/L (23-300) Hepatitis A IgM Ab Hep Bs Antigen
[2022-09-19 10:00] LABS: Glucose Point of Care 195 mg/dl (65-105)
[2022-09-19] MEDS: LACTATED RINGERS 1,000 ML 150 ML IV CONT (10:05)
--- NOTE | 2022-09-19 10:08 | WPDGICN ---
Assessment and Plan Assessment and plan (1) Hematemesis: Code(s): K92.0 - Hematemesis Status: Acute Assessment and Plan: apparently cirrhosis when he had last imaging but unaware of diagnosis he was started on octreotide gtt and iv protonix will proceed with urgent egd, denies any more vomiting monitor for more signs of bleeding also noted that he has been taking nsaid's- will check for pud (2) GI bleed: Code(s): K92.2 - Gastrointestinal hemorrhage, unspecified Status: Acute Assessment and Plan: medical management egd (3) Acute blood loss anemia: Code(s): D62 - Acute posthemorrhagic anemia Status: Acute Assessment and Plan: monitor h/h (4) Cirrhosis: Qualifiers: Hepatic cirrhosis type: unspecified hepatic cirrhosis Ascites presence: without ascites Qualified Code(s): K74.60 - Unspecified cirrhosis of liver Code(s): K74.60 - Unspecified cirrhosis of liver Status: Acute Assessment and Plan: based on previous imaging 2019 will get new abdominal ultrasound ? [facility] will order blood work to complete full liver work up (5) Arthritis: Code(s): M19.90 - Unspecified osteoarthritis, unspecified site Status: Acute Assessment and Plan: he was taking celebrex, will discontinue (6) Diabetes: Code(s): E11.9 - Type 2 diabetes mellitus without complications Status: Acute (7) History of colon polyps: Code(s): Z86.010 - Personal history of colonic polyps Status: Acute Assessment and Plan: he is uptodate with his colonoscopies GI Consult Note Consult date/time: 09/19/22 10:08 Reason for consult: hematemesis HPI: Harshal Castañeda is a 87 year old male with h/o DM, arthritis on daily celebrex here with new onset of nausea with bloody emesis, also noted bright red blood with stool and then dark blood with clots, denies previous episodes. He has been getting colonoscopies almost every 2 years, last time about 1 year ago in [facility] because strong family history of colon cancer in mother and brother, patient always has several polyps removed. He never had EGD but occasionally uses tums. No more vomiting and feeling better now. CT scan a/p 2019 showed cirrhosis but he is unaware of diagnosis, denies alcohol use. hb down to 11 (baseline 16), bun 37 (today normal) Review of Systems Constitutional: Constitutional: Denies headache(s) and Denies weakness Eyes: Eyes: Denies blurry vision ENT: Reports Normal hearing present, Denies headache(s) and Denies neck pain Cardiovascular: Cardiovascular: Denies chest pain and Denies dyspnea Respiratory: Respiratory: Denies dyspnea Gastrointestinal: Gastrointestinal: Reports hematochezia, Reports nausea and Reports vomiting Genitourinary: Genitourinary: Denies dysuria Musculoskeletal: Musculoskeletal: Denies neck pain Integumentary/Breasts: Skin/Breast: Denies dry skin Neurologic: Reports Normal hearing present, Denies headache(s) and Denies weakness Psychiatric: Psychiatric: Denies anxiety Endocrine: Endocrine: Denies change in body appearance Hematologic/Lymphatic: Hematologic/Lymphatic: Denies easy bleeding Allergic/Immunologic: Allergic/Immunologic: Denies urticaria PMFSH Past Medical History Medical History (Updated 09/19/22 @ 10:53 by Leander Garcia MD) Arthritis Benign prostatic hyperplasia Cirrhosis Degeneration of cervical intervertebral disc Diverticulosis Noted by Colonoscopy; polypectomy 2019 Gastroesophageal reflux disease Glaucoma Hematemesis History of colon polyps Hyperlipidemia Hypertension Malignant neoplasm of prostate Mixed hyperlipidemia Squamous cell skin cancer 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 Type 2 diabetes mellitus without complications Surgical History Surgical History H/O arthroscopy of knee H/O hernia repair
[2022-09-19] MEDS: BENZOCAINE (*SP) 60 ML SPRAY CAN (HURRICAINE) 1 SPRAY MUCOUS MEM (10:12)
--- NOTE | 2022-09-19 11:45 | PM.IMPN ---
Progress Note: A&P Assessment and Plan (1) GI bleed: Code(s): K92.2 - Gastrointestinal hemorrhage, unspecified Status: Acute Assessment and Plan: Reported hematemesis along with dark red stool Protonix drip, change to IV Q12H heart healthy diet started H/H stable at 11.2/34.7 Continue to trend labs EGD showed gastritis and duodenal ulcer (2) Duodenal ulcer: Code(s): K26.9 - Duodenal ulcer, unspecified as acute or chronic, without hemorrhage or perforation Status: Acute Assessment and Plan: EGD found ulcer Protonix IV GI on board (3) Acute blood loss anemia: Code(s): D62 - Acute posthemorrhagic anemia Status: Acute Assessment and Plan: Hemoglobin has dropped to 11.1 from 13.5 on arrival. Continue to trend H/H transfuse if indicated Stable at this time (4) Cirrhosis: Qualifiers: Ascites presence: without ascites Hepatic cirrhosis type: unspecified hepatic cirrhosis Qualified Code(s): K74.60 - Unspecified cirrhosis of liver Code(s): K74.60 - Unspecified cirrhosis of liver Status: Acute Assessment and Plan: Documented on previous imaging diagnosis is unknown to the patient Concerns are for variceal bleeding GI input appreciated EGD ulcer and gastritis Ultrasound ordered Labs also ordered and pending (5) Type 2 diabetes mellitus without complications: Qualifiers: Diabetes mellitus terminal manager insulin use: without care home use Qualified Code(s): E11.9 - Type 2 diabetes mellitus without complications Code(s): E11.9 - Type 2 diabetes mellitus without complications Status: Acute Assessment and Plan: Current Glucose 221 A1c today 7.4%. Hold metformin and glimepiride while NPO Initiate sliding scale insulin Accu-Cheks hypoglycemic protocol (6) Hypertension: Code(s): I10 - Essential (primary) hypertension Status: Acute Assessment and Plan: BP 97/69 Hold home lisinopril with hypotension Continue to trend BP Adjust therapy as indicted (7) Gastroesophageal reflux disease: Code(s): K21.9 - Gastro-esophageal reflux disease without esophagitis Status: Acute Assessment and Plan: Change protonix drip to IV protonix Stable Time Spent With Patient Time with patient: Greater than 35 minutes Subjective Date/time seen: 09/19/22 1145 Interval history: 09/19/22 114 patient is doing well right now. He did state that he was ready to go. EGD did show a duodenal ulcer and gastritis. he currently denies any chest pain, shortness a breath, nausea, vomiting, diarrhea or constipation. He did state that he was a little woozy however he has no new pain. He did state that he has some old abdominal pain which he has had for months. Currently labs remained stable. 09/18/22? 15:00 This is a pleasant 87-year-old male with history of diverticulosis, colon polyps, cirrhosis noted on prior imaging but unbeknownst to the patient, hypertension, hyperlipidemia, diabetes, and benign prostatic hyperplasia who presented to the ED from home for evaluation of blood in vomit and stool. Last evening he developed diffuse abdominal discomfort about an hour after eating. He describes a tight and occasionally burning sensation in the epigastric region but also some cramping pain throughout the lower abdomen. He has not noticed any significant aggravating or alleviating factors. Associated symptoms include nausea and he reports having an episode of emesis admixed with bright red blood at about 20:00. Shortly thereafter he passed a loose stool which was also admixed with bright red blood. He was able to go to sleep but sometime in the middle the night he woke up again with nausea and he had several other similar episodes which has left him quite weak. He mendoza
--- NOTE | 2022-09-19 11:45 | P.PNIM_ITS ---
Progress Note: A&P Assessment and Plan (1) GI bleed: Code(s): K92.2 - Gastrointestinal hemorrhage, unspecified Status: Acute Assessment and Plan: * Reported hematemesis along with dark red stool * Protonix drip, change to IV Q12H * heart healthy diet started * H/H stable at 11.2/34.7 * Continue to trend labs * EGD showed gastritis and duodenal ulcer (2) Duodenal ulcer: Code(s): K26.9 - Duodenal ulcer, unspecified as acute or chronic, without hemorrhage or perforation Status: Acute Assessment and Plan: * EGD found ulcer * Protonix IV * GI on board (3) Acute blood loss anemia: Code(s): D62 - Acute posthemorrhagic anemia Status: Acute Assessment and Plan: * Hemoglobin has dropped to 11.1 from 13.5 on arrival. * Continue to trend H/H * transfuse if indicated * Stable at this time (4) Cirrhosis: Qualifiers: Ascites presence: without ascites Hepatic cirrhosis type: unspecified hepatic cirrhosis Qualified Code(s): K74.60 - Unspecified cirrhosis of liver Code(s): K74.60 - Unspecified cirrhosis of liver Status: Acute Assessment and Plan: * Documented on previous imaging * diagnosis is unknown to the patient * Concerns are for variceal bleeding * GI input appreciated * EGD ulcer and gastritis * Ultrasound ordered * Labs also ordered and pending (5) Type 2 diabetes mellitus without complications: Qualifiers: Diabetes mellitus buttermaker insulin use: without usp use Qualified Code(s): E11.9 - Type 2 diabetes mellitus without complications Code(s): E11.9 - Type 2 diabetes mellitus without complications Status: Acute Assessment and Plan: * Current Glucose 221 * A1c today 7.4%. * Hold metformin and glimepiride while NPO * Initiate sliding scale insulin * Accu-Cheks * hypoglycemic protocol (6) Hypertension: Code(s): I10 - Essential (primary) hypertension Status: Acute Assessment and Plan: * BP 97/69 * Hold home lisinopril with hypotension * Continue to trend BP * Adjust therapy as indicted (7) Gastroesophageal reflux disease: Code(s): K21.9 - Gastro-esophageal reflux disease without esophagitis Status: Acute Assessment and Plan: * Change protonix drip to IV protonix * Stable Time Spent With Patient Time with patient: Greater than 35 minutes Subjective Date/time seen: 09/19/22 1145 Interval history: 09/19/22 114 patient is doing well right now. He did state that he was ready to go. EGD did show a duodenal ulcer and gastritis. he currently denies any chest pain, shortness a breath, nausea, vomiting, diarrhea or constipation. He did state that he was a little woozy however he has no new pain. He did state that he has some old abdominal pain which he has had for months. Currently labs remained stable. 09/18/22? 15:00 This is a pleasant 87-year-old male with history of diverticulosis, colon polyps, cirrhosis noted on prior imaging but unbeknownst to the patient, hypertension, hyperlipidemia, diabetes, and benign prostatic hyperplasia who presented to the ED from home for evaluation of blood in vomit and stool. Last evening he developed diff
[2022-09-19 11:55] LABS: Glucose Point of Care 185 mg/dl (65-105)
[2022-09-19] MEDS: PHARMACIST COMMUNICATION ORDER 1 EACH XX (15:12)
[2022-09-19 17:53] LABS: Glucose Point of Care 197 mg/dl (65-105)
[2022-09-19] MEDS: cefTRIAXone 2 GM in SODIUM CHLORIDE 0.9% IV 100 ML 200 ML IVPB (21:54)
[2022-09-19] MEDS: LATANOPROST 0.005% OP SOLN 2.5 ML BTL 1 DROP EACH EYE (21:55)
[2022-09-19] MEDS: PANTOPRAZOLE SODIUM IV 40 MG VIAL IV PUSH (21:55)
[2022-09-19 23:26] LABS: Glucose Point of Care 146 mg/dl (65-105)
[2022-09-20] VITALS: PULSE 96
[2022-09-20 04:00] VITALS: PULSE 92
[2022-09-20 06:00] VITALS: BP 118/69; PULSE 98; RESP 20; TEMP 36.2; O2SAT 97
[2022-09-20 07:58] LABS: Basophils Percent Auto 0.3 % (0.2-1.2); Eosinophils Absolute Auto 0.2 K/mm3 (0-0.3); Eosinophils Percent Auto 3.7 % (0-4.4); Hematocrit 33.2 % (42.0-52.0); Hemoglobin 10.7 g/dL (14.0-18.0); Immature Granulocyte Absolute 0.02 K/mm3 (0.00-0.031); Immature Granulocyte Percent A 0.3 % (0-0.5); Lymphocytes Percent Auto 18.5 % (18.3-44.2); Mean Corpuscular HGB Conc 32.2 g/dl (32-36); Mean Corpuscular Hemoglobin 30.1 pg (26-34); Mean Corpuscular Volume 93.3 fl (80-100); Mean Platelet Volume 10.9 fl (7.4-10.4); Monocytes Absolute Auto 0.4 K/mm3 (0.1-0.6); Monocytes Percent Auto 6.9 % (2.6-8.5); Neutrophils Absolute Auto 4.2 K/mm3 (1.3-6.7); Neutrophils Percent Auto 70.3 % (45.5-73.1); Platelet Count Result 161 k/mm3 (150-375); Red Blood Count 3.56 M/mm3 (4.6-6.20); Red Cell Distribution Width 13.1 % (11.5-14.5)
[2022-09-20 08:00] VITALS: PULSE 85
[2022-09-20 08:23] LABS: Iron 51 ug/dL (49-181)
[2022-09-20 08:32] LABS: Percent Iron Saturation 19 % (20-50)
[2022-09-20 08:43] LABS: Alanine Aminotransferase 27 U/L (6-50); Albumin Level 3.7 g/dL (3.5-5.1); Alkaline Phosphatase 35 U/L (38-126); Anion Gap 6 mmol/L (8-16); Aspartate Amino Transferase 32 U/L (17-59); Bilirubin,Total 0.4 mg/dL (0.2-1.3); Blood Urea Nitrogen 14 mg/dL (9-20); Calcium 8.6 mg/dL (8.4-10.2); Carbon Dioxide 27 mmol/L (22-30); Chloride 104 mmol/L (98-107); Estimated CRCL calculation 71 ml/min; Estimated Glomerular Filt Rate > 60; Glucose 178 mg/dL (65-110); Sodium 137 mmol/L (137-145)
[2022-09-20] MEDS: lisinopriL 5 MG TABLET PO (09:00)
[2022-09-20] MEDS: SIMVASTATIN 20 MG TABLET PO (09:00)
[2022-09-20] MEDS: FINASTERIDE 5 MG TABLET PO (09:00)
[2022-09-20] MEDS: MICONAZOLE NITRATE 2% CREAM 30 GM TUBE 1 APPLIC TOPICAL (09:00)
[2022-09-20] MEDS: PANTOPRAZOLE SODIUM IV 40 MG VIAL IV PUSH (09:00)
[2022-09-20 11:47] LABS: Glucose Point of Care 174 mg/dl (65-105)
[2022-09-20 12:00] VITALS: PULSE 90
--- NOTE | 2022-09-20 15:55 | WPDGIPROGNO ---
Progress Note: A&P Assessment and Plan (1) Duodenal ulcer: Code(s): K26.9 - Duodenal ulcer, unspecified as acute or chronic, without hemorrhage or perforation Status: Acute Assessment and Plan: no more bleeding will need protonix or equivalent twice daily (2) Hematemesis: Code(s): K92.0 - Hematemesis Status: Acute Assessment and Plan: resolved (3) Cirrhosis: Qualifiers: Hepatic cirrhosis type: unspecified hepatic cirrhosis Ascites presence: without ascites Qualified Code(s): K74.60 - Unspecified cirrhosis of liver Code(s): K74.60 - Unspecified cirrhosis of liver Status: Acute Assessment and Plan: work up in progress hepatitis panel negative (4) Acute blood loss anemia: Code(s): D62 - Acute posthemorrhagic anemia Status: Acute Assessment and Plan: h/h stable now (5) Lesion of pancreas: Code(s): K86.9 - Disease of pancreas, unspecified Status: Acute Assessment and Plan: incidental finding in ultrasound, CT scan pending Subjective Date/time seen: 09/20/22 15:55 Interval history: no more bleeding, doing ok. He had ruq ultrasound because previous cirrhosis by imaging and that showed possible lesion in pancreas, pending CT scan Review of Systems Review of Systems: All systems reviewed & are unremarkable except as noted in HPI and below Exam Const: General: comfortable and no acute distress HENMT: Face/Nose/Sinus: Normal nares present Eyes: General: appearance normal, both eyes and all related structures Neck: Neck: no JVD Resp: Auscultation: clear to auscultation bilaterally Cardio: Rate: regular rate Rhythm: regular rhythm GI: Inspection: non-distended GI Palp: Yes Soft to palpation, No Tenderness to palpation present (GI) and No Guarding due to palpation present (GI) Auscultation: normal bowel sounds Skin: General skin exam: normal color Neuro: Speech: normal speech Motor exam (neuro): 5/5 motor strength present throughout Extrem: General: normal to inspection Psych: Mental Status: mental status grossly normal Objective Data Vital Signs Vital Signs: Vital Signs - 24 hr 09/19/22 17:02 09/19/22 17:02 09/19/22 16:00 Temperature Pulse Rate 83 Respiratory Rate Blood Pressure 122/62 135/58 L Pulse Oximetry 09/19/22 20:00 09/19/22 20:05 09/19/22 20:10 Temperature 97.1 F L Pulse Rate 83 89 92 Respiratory Rate 18 20 20 Blood Pressure 116/64 114/59 L 120/61 Pulse Oximetry 100 100 100 09/19/22 20:00 09/20/22 00:00 09/20/22 04:00 Temperature Pulse Rate 92 96 92 Respiratory Rate Blood Pressure Pulse Oximetry 09/20/22 06:00 09/20/22 08:00 09/20/22 12:00 Temperature 97.1 F L Pulse Rate 98 85 90 Respiratory Rate 20 Blood Pressure 118/69 Pulse Oximetry 97 Intake/Output Intake/Output: Intake & Output 09/17/22 09/18/22 09/19/22 09/20/22 23:59 23:59 23:59 23:59 Intake Total 3600 1840 530 Output Total 1050 Balance 3600 790 530 Meds/Results Medications: Active Medications Generic Name Dose Route Start Last Admin Trade Name Freq PRN Reason Stop Dose Admin Dextrose 12.5 gm 09/18/22 15:13 Dextrose 50% 25 Gm/50 Ml Syringe IV PUSH PRN PRN Hypoglycemia Protocol Finasteride 5 mg 09/19/22 09:00 09/20/22 09:00 Finasteride 5 Mg Tablet PO 5 mg QAM JIMI Administration Glucagon 1 mg 09/18/22 15:13 Glucagon For Inj 1 Mg Vial IM PRN PRN Hypoglycemia Protocol Glucose 15 gm 09/18/22 15:13 Glucose Oral Gel 15 Gm Of Glucse In 37.5 Gm Tube PO PRN PRN Hypoglycemia Protocol Dextrose 1,000 mls @ 100 mls/hr 09/18/22 15:13 Dextrose 5% 1,000 Ml IVPB PRN PRN Hypoglycemia Protocol Ceftriaxone Sodium 2 gm/ 100 mls @ 200 mls/hr 09/18/22 21:00 09/19/22 22:24 Sodium Chloride IVPB Infused Q24H JIMI Infusion Insulin Aspart 2 - 5
[2022-09-20 16:00] VITALS: PULSE 89
[2022-09-23 10:03] LABS: Ceruloplasmin 21 mg/dL (18-36)
[2022-09-23 12:25] LABS: Mitochondrial (M2) Ab (IgG) <=20.0 U (<=20.0)
--- NOTE | 2022-10-09 15:43 | P.DS_ITS ---
DS: Admitting Diagnosis Discharge Date 09/20/22 Admitting Diagnosis Hematemesis DS: Discharge Diagnosis Discharge Diagnosis (1) GI bleed: Code(s): K92.2 - Gastrointestinal hemorrhage, unspecified Status: Acute Assessment and Plan: * Reported hematemesis along with dark red stool * Protonix drip, change to IV Q12H * heart healthy diet started * H/H stable at 11.2/34.7 * Continue to trend labs * EGD showed gastritis and duodenal ulcer (2) Duodenal ulcer: Code(s): K26.9 - Duodenal ulcer, unspecified as acute or chronic, without hemorrhage or perforation Status: Acute Assessment and Plan: * EGD found ulcer * Protonix IV * GI on board (3) Acute blood loss anemia: Code(s): D62 - Acute posthemorrhagic anemia Status: Acute Assessment and Plan: * Hemoglobin has dropped to 11.1 from 13.5 on arrival. * Continue to trend H/H * transfuse if indicated * Stable at this time (4) Cirrhosis: Qualifiers: Hepatic cirrhosis type: unspecified hepatic cirrhosis Ascites presence: without ascites Qualified Code(s): K74.60 - Unspecified cirrhosis of liver Code(s): K74.60 - Unspecified cirrhosis of liver Status: Acute Assessment and Plan: * Documented on previous imaging * diagnosis is unknown to the patient * Concerns are for variceal bleeding * GI input appreciated * EGD ulcer and gastritis * Ultrasound ordered * Labs also ordered and pending (5) Type 2 diabetes mellitus without complications: Qualifiers: Diabetes mellitus adjunct faculty for medical terminology insulin use: without assisted use Qualified Code(s): E11.9 - Type 2 diabetes mellitus without complications Code(s): E11.9 - Type 2 diabetes mellitus without complications Status: Acute Assessment and Plan: * Current Glucose 221 * A1c today 7.4%. * Hold metformin and glimepiride while NPO * Initiate sliding scale insulin * Accu-Cheks * hypoglycemic protocol (6) Hypertension: Code(s): I10 - Essential (primary) hypertension Status: Acute Assessment and Plan: * BP 97/69 * Hold home lisinopril with hypotension * Continue to trend BP * Adjust therapy as indicted (7) Gastroesophageal reflux disease: Code(s): K21.9 - Gastro-esophageal reflux disease without esophagitis Status: Acute Assessment and Plan: * Change protonix drip to IV protonix * Stable DS: Summary Hospital Course Hospital Course: 87-year-old male with history of diverticulosis, colon polyps, cirrhosis noted on prior imaging but unbeknownst to the patient, hypertension, hyperlipidemia, diabetes, and benign prostatic hyperplasia who presented to the ED from home for evaluation of blood in vomit and stool. Last evening he developed diffuse abdominal discomfort about an hour after eating. He describes a tight and occasionally burning sensation in the epigastric region but also some cramping pain throughout the lower abdomen. He has not noticed any significant aggravating or alleviating factors. Associated symptoms include nausea and he reports having an episode of emesis admixed with bright red blood at about 20:00. Shortly thereafter he passed a loose stool which was also admixed with giselle
--- NOTE | 2022-10-09 15:43 | PM.DS ---
DS: Admitting Diagnosis Discharge Date 09/20/22 Admitting Diagnosis Hematemesis DS: Discharge Diagnosis Discharge Diagnosis (1) GI bleed: Code(s): K92.2 - Gastrointestinal hemorrhage, unspecified Status: Acute Assessment and Plan: Reported hematemesis along with dark red stool Protonix drip, change to IV Q12H heart healthy diet started H/H stable at 11.2/34.7 Continue to trend labs EGD showed gastritis and duodenal ulcer (2) Duodenal ulcer: Code(s): K26.9 - Duodenal ulcer, unspecified as acute or chronic, without hemorrhage or perforation Status: Acute Assessment and Plan: EGD found ulcer Protonix IV GI on board (3) Acute blood loss anemia: Code(s): D62 - Acute posthemorrhagic anemia Status: Acute Assessment and Plan: Hemoglobin has dropped to 11.1 from 13.5 on arrival. Continue to trend H/H transfuse if indicated Stable at this time (4) Cirrhosis: Qualifiers: Hepatic cirrhosis type: unspecified hepatic cirrhosis Ascites presence: without ascites Qualified Code(s): K74.60 - Unspecified cirrhosis of liver Code(s): K74.60 - Unspecified cirrhosis of liver Status: Acute Assessment and Plan: Documented on previous imaging diagnosis is unknown to the patient Concerns are for variceal bleeding GI input appreciated EGD ulcer and gastritis Ultrasound ordered Labs also ordered and pending (5) Type 2 diabetes mellitus without complications: Qualifiers: Diabetes mellitus computer terminal operator insulin use: without computer terminal operator use Qualified Code(s): E11.9 - Type 2 diabetes mellitus without complications Code(s): E11.9 - Type 2 diabetes mellitus without complications Status: Acute Assessment and Plan: Current Glucose 221 A1c today 7.4%. Hold metformin and glimepiride while NPO Initiate sliding scale insulin Accu-Cheks hypoglycemic protocol (6) Hypertension: Code(s): I10 - Essential (primary) hypertension Status: Acute Assessment and Plan: BP 97/69 Hold home lisinopril with hypotension Continue to trend BP Adjust therapy as indicted (7) Gastroesophageal reflux disease: Code(s): K21.9 - Gastro-esophageal reflux disease without esophagitis Status: Acute Assessment and Plan: Change protonix drip to IV protonix Stable DS: Summary Hospital Course Hospital Course: 87-year-old male with history of diverticulosis, colon polyps, cirrhosis noted on prior imaging but unbeknownst to the patient, hypertension, hyperlipidemia, diabetes, and benign prostatic hyperplasia who presented to the ED from home for evaluation of blood in vomit and stool. Last evening he developed diffuse abdominal discomfort about an hour after eating. He describes a tight and occasionally burning sensation in the epigastric region but also some cramping pain throughout the lower abdomen. He has not noticed any significant aggravating or alleviating factors. Associated symptoms include nausea and he reports having an episode of emesis admixed with bright red blood at about 20:00. Shortly thereafter he passed a loose stool which was also admixed with bright red blood. He was able to go to sleep but sometime in the middle the night he woke up again with nausea and he had several other similar episodes which has left him quite weak. He has had similar discomfort, mainly in the lower mid and right chest region, for several months and he has been taking Tums which seems to help his symptoms though he goes on to say that he does not feel his symptoms are related to indigestion. He was previously evaluated by his doctor and in fact had a full cardiac workup which was reportedly unremarkable. He takes Celebrex daily avoids other NSAIDs and he denies significant caffeine and alcohol in
== END 2022-09-20 16:50 | disposition home or self-care (01) | DRG 378 ==
LOC: ANHED 12:06 → ANH3MEDSUR 14:53
PROVIDERS: Internal Medicine Gastroenterology; Nurse Practitioner; Physician Assistant; Admitting Provider Internal Medicine; Emergency Provider Emergency Medicine; PCP Family Medicine; Visit Provider Student in an Organized Health Care Education/Training Program
PROC: 0DJ08ZZ Inspection of Upper Intestinal Tract, Via Natural or Artificial Opening Endoscopic (ICD-10-PCS; CPT 43235; principal; 2022-09-19 15:00)
DX: K26.4 Chronic or unspecified duodenal ulcer with hemorrhage (principal); D62 Acute posthemorrhagic anemia; R18.8 Other ascites; K21.00 Gastro-esophageal reflux disease with esophagitis, without bleeding; K74.60 Unspecified cirrhosis of liver; E11.9 Type 2 diabetes mellitus without complications; I10 Essential (primary) hypertension; K29.71 Gastritis, unspecified, with bleeding; E78.2 Mixed hyperlipidemia; Z20.822 Contact with and (suspected) exposure to COVID-19; Z79.84 Long term (current) use of oral hypoglycemic drugs; Z96.649 Presence of unspecified artificial hip joint; Z82.49 Family history of ischemic heart disease and other diseases of the circulatory system; Z80.0 Family history of malignant neoplasm of digestive organs; Z80.3 Family history of malignant neoplasm of breast; Z87.891 Personal history of nicotine dependence; Z79.899 Other long term (current) drug therapy
CPT/HCPCS: 36415; 74176; 76705; 80053; 80074; 82104; 82390; 82728; 82948; 83036; 83520; 83540; 83550; 83690; 83735; 85014; 85018; 85025; 85610; 85730; 86038; 86039; 86140; 86850; 86900; 86901; 87081; 87636; 88305; 88342; 96361; 96365; 96366; 96367; 96375; 99285; A9270; C9113; G0378; J0696; J1815; J2354; J2704; J7030; J7060; J7120

== ENCOUNTER 2022-10-09 08:14 | Outpatient (CLI) | payer MEDICARE, SELFPAY ==
--- NOTE | ~2022-10-09 | MR_ITS ---
EXAMINATION: MR MRCP wo/w con/w 3D wo ind DATE: 10/09/2022 09:48 INDICATION: Pancreatic mass. TECHNIQUE: Magnetic resonance imaging (MRI) of the abdomen was performed without and with 17 mL Multi Blayne intravenous contrast. Sequences included coronal T2-weighted FS FSE, coronal T2-weighted FSE, a xial T1-weighted LAVA, coronal FS FIESTA, axial dual-echo T1-weighted SPGR, coronal lava-FLEX, sagitt al T2-weighted FSE, axial T2-weighted FSE, and axial DWI. Thick-slab T2-weighted FSE images were obta ined for magnetic resonance cholangiopancreatography (MRCP). Maximum intensity projection 3-D reconst ructions of the volumetric data were created by the technologist. Postcontrast sequences included cor onal LAVA-flex and time course of axial T1-weighted LAVA. COMPARISON: CT abdomen and pelvis 09/20/2022, 02/16/2020 FINDINGS: ABDOMEN MRI: There is diffuse hepatic steatosis. There are approximately 20 hypoenhancing masses in t he liver measuring up to 10 mm. There are gallstones in the gallbladder, which is distended, likely s econdary to fasting. The spleen is normal. There is a 2.2 cm hypoenhancing mass involving the head of the pancreas. There is a 5 mm cystic lesion in the tail of the pancreas. There is a 5 mm cystic lesi on in the head of the pancreas. The adrenal glands are normal. There are cysts in the kidneys measuri ng up to 2.5 cm on the left. There is diverticulosis of the colon without evidence of diverticulitis. There are no dilated loops of bowel. There are no pathologically enlarged lymph nodes. There is no f ree intraperitoneal fluid. ABDOMEN MRCP: The common duct is normal and measures 4 mm. No choledocholithiasis. IMPRESSION: 1. 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 2. Approximately 20 liver masses measuring up to 10 mm, consistent with metastatic disease. Ultrasoun d-guided core needle biopsy is recommended. 3. Cholelithiasis. Gallbladder distention may be secondary to fasting. Reviewed, dictated and finalized at location A. ROPE SALES REPRESENTATIVE IMPRESSION: 1. 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 2. Approximately 20 liver masses measuring up to 10 mm, consistent with metasta tic disease. Ultrasound-guided core needle biopsy is recommended. 3. Cholelithiasis. Gallbladder distention may be secondary to fasting.
== END 2022-10-09 08:15 | disposition home or self-care (01) ==
PROVIDERS: PCP Family Medicine; Visit Provider Nurse Practitioner
DX: K86.89 Other specified diseases of pancreas (principal); K76.89 Other specified diseases of liver; K80.20 Calculus of gallbladder without cholecystitis without obstruction
CPT/HCPCS: 74183; 76376; A9577